=== PATIENT | female | born 1980 | race Caucasian/White ===

== ENCOUNTER 2016-11-23 17:51 | Emergency (ER) | payer MEDICAID, OTHER ==
[2016-11-23] MEDS ORDERED: Lidocaine 1% 20 ML MDV INJECT ONE (17:54)
[2016-11-23] MEDS ORDERED: Diphtheria,Pertussis(Acell),Tetanus Vaccine 0.5 ML Syringe IM ONE (18:26)
--- NOTE | 2016-11-23 18:40 | EDM.PDOC ---
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 This external grinder tender was not on at the time it struck her hand however it was heavy and she has pain to her hand underneath a small laceration. Review of systems: As per history of present illness and below otherwise all systems reviewed and negative. Past medical history: As per history of present illness and as reviewed below otherwise noncontributory. Surgical history: As per history of present illness and as reviewed below otherwise noncontributory. Social history: No reported history of drug or alcohol abuse. Family history: As per history of present illness and as reviewed below otherwise noncontributory. Physical exam: General: Well developed, well nourished in NAD HEENT: Atraumatic, normocephalic, pupils reactive, negative for conjunctival pallor or scleral icterus, mucous membranes moist, throat clear, neck supple, nontender, trachea midline. Lungs: Clear to auscultation, breath sounds equal bilaterally, chest nontender. Heart: S1S2, regular, negative for clicks, rubs, or JVD. Abdomen: Soft, nondistended, nontender. Negative for masses or hepatosplenomegaly. Negative for costovertebral tenderness. Pelvis: Stable nontender. Genitourinary: Deferred. Rectal: Deferred. Extremities: 1 cm laceration over the left dorsal first (index) metacarpal, negative for cords or calf pain. Neurovascular unremarkable. Neuro: Awake, alert, oriented. Cranial nerves II through XII unremarkable. Cerebellum unremarkable. Motor and sensory unremarkable throughout. Exam nonfocal. Diagnostics: []X-ray negative for fracture Therapeutics: []Tetanus status updated Impression: []Laceration left hand Plan: []Keflex, Motrin for pain Definitive disposition and diagnosis as appropriate pending reevaluation and review of above. 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 Neurological History: Reports: None Psychiatric History: Reports: None Endocrine/Metabolic History: Reports: None Dermatologic History: Reports: None - Infectious Disease History Infectious 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 - Past Surgical History HEENT Surgical History: Reports: None Cardiovascular Surgical History: Reports: None Respiratory Surgical History: Reports: None Female Surgical History: Reports: None Neurological Surgical History: Reports: None Musculoskeletal Surgical History: Reports: Other (See Below) Other Musculoskeletal Surgeries/Procedures:: Left hip metal plate Social & Family History - Family History Family Medical History: Noncontributory - Tobacco Use Smoking Status *Q: Current Every Day Smoker Years of Tobacco use: 15 Packs/Tins Daily: 0.5 Second Hand Smoke Exposure: No - Caffeine Use Caffeine Use: Reports: Coffee, Energy Drinks, Soda, Tea - Recreational Drug Use Recreational Drug Use: No ED ROS GENERAL - Review of Systems Review Of Systems: See Below (See history of present illness) ED EXAM, SKIN/RASH Exam: See Below (See history of present illness) ED SKIN PROCEDURES - Laceration/Wound Repair Left Hand Lac/Wound length In cm: 1 Appearance: Superficial, Subcutaneous Distal NVT: Neuro & Vascular Intact Anesthetic Type: Local Local Anesthesia - Lidocaine (Xylocaine): 1% Plain Local Anesthesia - Bupivicaine (Marcaine): 0.5% Plain Local Anesthetic Volume: 1cc Skin Prep: Chlorhexidine (Hibiciens), Saline Closed with: Sutures Suture Size: 4-0 # of Sutures: 5 Repaired with: Vicryl Drain Placement: No Sterile Dressing Applied: Nurse Tetanus Status Addressed: Yes Complications: No Course - Vital Signs Last Recorded V/S: Last Vital Signs Temp 36.6 C 11/23/16 18:18 Pulse 79 11/23/16 18:18 Resp 15 11/23/16 18:18 BP 119/73 11/23/16 18:18 Pulse Ox 97 11/23/16 18:18 - Orders/Labs/Meds Orders: Active Orders 24 hr Category Date Time Status Vaccines to be Administered [RC] PER UNIT ROUTINE Care 11/23/16 18:26 Active Hand 2V Lt [CR] Stat Exams 11/23/16 18:36 Ordered Meds: Medications Discontinued Medications Generic Name Dose Route Start Last Admin Trade Name Miguel PRN Reason Stop Dose Admin Diphtheria/Tetanus/Acell Pertussis 0.5 ml 11/23/16 18:26 11/23/16 18:32 Adacel IM 11/23/16 18:27 0.5 ml .ONCE ONE Administration Lidocaine HCl 20 ml 11/23/16 17:54 11/23/16 18:26 Xylocaine 1% INJECT 11/23/16 17:55 20 ml ONETIME ONE Administration Departure - Departure Time of Disposition: 19:06 Disposition: Home, Self-Care 01 Condition: Good Clinical Impression: Hand laceration Qualifiers: Encounter type: initial encounter Foreign body presence: without foreign body Laterality: left Qualified Code(s): S61.412A - Laceration without foreign body of left hand, initial encounter - Discharge Information Prescriptions: Cephalexin [Keflex] 500 mg PO Q6HR #20 cap Referrals: Miles Galindo MD [Primary Care Provider] - Forms: ED Department Discharge Additional Instructions: The following information is given to patients seen in the emergency department who are being discharged to home. This information is to outline your options for follow-up care. We provide all patients seen in our emergency department with a follow-up referral. The need for follow-up, as well as the timing and circumstances, are variable depending upon the specifics of your emergency department visit. If you don't have a primary care physician on staff, we will provide you with a referral. We always advise you to contact your personal physician following an emergency department visit to inform them of the circumstance of the visit and for follow-up with them and/or the need for any referrals to a consulting specialist. The emergency department will also refer you to a specialist when appropriate. This referral assures that you have the opportunity for follow-up care with a specialist. All of these measure are taken in an effort to provide you with optimal care, which includes your follow-up. Under all circumstances we always encourage you to contact your private physician who remains a resource for coordinating your care. When calling for follow-up care, please make the office aware that this follow-up is from your recent emergency room visit. If for any reason you are refused follow-up, please contact the [facility] Emergency Department at and asked to speak to the emergency department charge nurse. Taryn as directed, Jessicarin for pain, ice hand, suture removal in 7-10 days return if any symptoms change or worsen including redness swelling fevers or drainage from the wound. [facility] [address] [place] [id number] - My Orders Last 24 Hours: My Active Orders 11/23/16 18:26 Vaccines to be Administered [RC] PER UNIT ROUTINE 11/23/16 18:36 Hand 2V Lt [CR] Stat - Assessment/Plan Last 24 Hours: My Active Orders 11/23/16 18:26 Vaccines to be Administered [RC] PER UNIT ROUTINE 11/23/16 18:36 Hand 2V Lt [CR] Stat
[2016-11-24 04:35] VITALS: BP 126/74
--- NOTE | 2016-11-24 10:43 | CR ---
EXAM DATE: 11/23/16 PATIENT'S AGE: 36 Patient: EMILIO FINK Facility: [place], [place] Site . Site : [id number] Study: XRay Extremity hand [id number]/[id number] 7:01:22 PM Ordering Physician: Laurent Ruiz Final Report: INDICATION: crushing injury TECHNIQUE: AP and lateral views of the left hand are submitted. COMPARISON: None. FINDINGS: No evidence for fracture, dislocation or radiopaque foreign bodies. IMPRESSION: Negative left hand. Dictated by Miles Pro MD @ 11/23/2016 7:19:02 PM Dictated by: Miles Pro MD @ 11/23/2016 19:19:15 (Electronic Signature) Report Signed by Proxy. HAMMAD
== END 2016-11-23 19:35 | disposition home or self-care (01) ==
LOC: MW.ED 17:51
DX: S61.412A Laceration without foreign body of left hand, initial encounter (principal); Z23 Encounter for immunization; F17.210 Nicotine dependence, cigarettes, uncomplicated; W20.8XXA Other cause of strike by thrown, projected or falling object, initial encounter
CPT/HCPCS: 12001; 73120-26-LT; 73120-LT; 90471; 90715; 99283; 99283-25

== ENCOUNTER 2018-02-02 11:29 | Observation (INO) | payer SELFPAY ==
[2018-02-02] MEDS ORDERED: Ketorolac 60 MG/2 ML SDV IM ONE (11:39)
--- NOTE | 2018-02-02 11:42 | EDM.PDOC ---
ED HPI GENERAL MEDICAL PROBLEM - General Chief Complaint: Abdominal Pain Stated Complaint: ABD PAIN Time Seen by Provider: 02/02/18 11:33 Source of Information: Reports: Patient History Limitations: Reports: No Limitations - History of Present Illness INITIAL COMMENTS - FREE TEXT/NARRATIVE: HISTORY AND PHYSICAL: History of present illness: Patient is a 38-year-old female who presents to the emergency room today with complaints of left low back pain since Wednesday. She states this has been worse over the past 24 hours; is concerned it is her "kidneys". She states she is voiding without difficulty but feels like she is not completely emptying her bladder, "it seems like it is just small amounts". Mild nausea and pain to the left low back seems worse with movement. 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 She denies any previous injury, trauma or surgeries of the, hip or pelvis. No recent trauma, falls or injury. She denies any numbness or tingling to her distal extremities. She denies any fever, chills, chest pain, shortness of breath or cough. Denies any abdominal pain, vomiting, diarrhea, constipation or dysuria. Review of systems: As per history of present illness and below otherwise all systems reviewed and negative. Past medical history: As per history of present illness and as reviewed below otherwise noncontributory. Surgical history: As per history of present illness and as reviewed below otherwise noncontributory. Social history: No reported history of drug or alcohol abuse. Family history: As per history of present illness and as reviewed below otherwise noncontributory. Physical exam: General: Well-developed and well-nourished 38-year-old female. Alert and oriented. Nontoxic appearing and in no acute distress. HEENT: Atraumatic, normocephalic, pupils equal and reactive bilaterally, negative for conjunctival pallor or scleral icterus, mucous membranes moist, throat clear, neck supple, nontender, trachea midline. No drooling or trismus noted. No meningeal signs Lungs: Clear to auscultation, breath sounds equal bilaterally, chest nontender. Heart: S1S2, regular rate and rhythm without overt murmur Abdomen: Soft, nondistended, nontender. Negative for masses or hepatosplenomegaly. Negative for costovertebral tenderness. Pelvis: Stable nontender. Genitourinary: Deferred. Rectal: Deferred. Skin: Intact, warm, dry. No lesions or rashes noted. Extremities: Atraumatic, negative for cords or calf pain. Neurovascular unremarkable. Neuro: Awake, alert, oriented. Cranial nerves II through XII unremarkable. Cerebellum unremarkable. Motor and sensory unremarkable throughout. Exam nonfocal. Notes: CT shows a 4 mm obstructing stone at the left ureteropelvic junction with mild proximal hydronephrosis. Nonobstructing left renal stone. Dr. Fernandez was consult did on this case. He would like the patient to present to his office after discharge from the emergency room. He states he will take care of of her prescriptions when he evaluates her. Shared with the patient. She voices understanding and is agreeable to plan of care. Patient discharged to a referral to urology. Diagnostics: CBC, CMP, UA, urine Therapeutics: Toradol, Zofran Prescription: None Impression: Kidney Stone Pyelonephritis Plan: 1. Please go directly to Dr Deshpande's office for further evaluation and management 2. Return to the ED as needed and as discussed. Definitive disposition and diagnosis as appropriate pending reevaluation and review of above. Duration: Day(s): left flank Pain Score (Numeric/FACES): 8 - Related Data Allergies Allergy/AdvReac Type Severity Reaction Status Date / Time No Known Allergies Allergy Verified 02/02/18 11:40 Home Meds: Home Meds . 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 Neurological History: Reports: None Psychiatric History: Reports: None Endocrine/Metabolic History: Reports: None Dermatologic History: Reports: None - Infectious Disease History Infectious 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 - Past Surgical History HEENT Surgical History: Reports: None Cardiovascular Surgical History: Reports: None Respiratory Surgical History: Reports: None Female Surgical History: Reports: None Neurological Surgical History: Reports: None Musculoskeletal Surgical History: Reports: Other (See Below) Other Musculoskeletal Surgeries/Procedures:: Left hip metal plate Social & Family History - Family History Family Medical History: Noncontributory - Caffeine Use Caffeine Use: Reports: Coffee, Energy Drinks, Soda, Tea ED ROS GENERAL - Review of Systems Review Of Systems: ROS reveals no pertinent complaints other than HPI. ED EXAM, GENERAL - Physical Exam Exam: See Below (See dictation) Course - Vital Signs Last Recorded V/S: Last Vital Signs Temp 98.4 F 02/02/18 11:36 Pulse 86 02/02/18 11:36 Resp 16 02/02/18 11:36 BP 131/84 02/02/18 11:36 Pulse Ox 97 02/02/18 11:36 - Orders/Labs/Meds Orders: Active Orders 24 hr Category Date Time Status CULTURE URINE [RM] Stat Lab 02/02/18 13:28 Ordered Labs: Laboratory Tests 02/02/18 02/02/18 02/02/18 Range/Units 12:08 12:08 12:50 WBC 12.70 H (4.0-11.0) K/uL RBC 4.31 (4.30-5.90) M/uL Hgb 13.1 (12.0-16.0) g/dL Hct 40.4 (36.0-46.0) % MCV 93.7 (80.0-98.0) fL MCH 30.4 (27.0-32.0) pg MCHC 32.4 (31.0-37.0) g/dL RDW Std Deviation 44.0 (28.0-62.0) fl RDW Coeff of Adrianna 13 (11.0-15.0) % Plt Count 145 L (150-400) K/uL MPV 11.70 (7.40-12.00) fL Neut % (Auto) 82.4 H (48.0-80.0) % Lymph % (Auto) 8.9 L (16.0-40.0) % [place] % (Auto) 8.0 (0.0-15.0) % Eos % (Auto) 0.6 (0.0-7.0) % Baso % (Auto) 0.1 (0.0-1.5) % Neut # (Auto) 10.5 H (1.4-5.7) K/uL Lymph # (Auto) 1.1 (0.6-2.4) K/uL [place] # (Auto) 1.0 H (0.0-0.8) K/uL Eos # (Auto) 0.1 (0.0-0.7) K/uL Baso # (Auto) 0.0 (0.0-0.1) K/uL Sodium 142 (136-145) mmol/L Potassium 3.9 (3.5-5.1) mmol/L Chloride 108 H (98-107) mmol/L Carbon Dioxide 26.2 (21.0-32.0) mmol/L BUN 10 (7.0-18.0) mg/dL Creatinine 0.8 (0.6-1.0) mg/dL Est Cr Clr Drug Dosing 86.64 mL/min Estimated GFR (MDRD) > 60.0 ml/min Glucose 98 (74-106) mg/dL Calcium 8.8 (8.5-10.1) mg/dL Total Bilirubin 0.4 (0.2-1.0) mg/dL AST 12 L (15-37) IU/L ALT 18 (14-63) IU/L Alkaline Phosphatase 77 (46-116) U/L Total Protein 7.2 (6.4-8.2) g/dL Albumin 3.5 (3.4-5.0) g/dL Globulin 3.7 H (2.0-3.5) g/dL Albumin/Globulin Ratio 1.0 L (1.3-2.8) Urine Color YELLOW Urine Appearance SLT CLOUDY Urine pH 5.5 (5.0-8.0) Ur Specific [place] 1.020 (1.001-1.035) Urine Protein 30 (NEGATIVE) mg/dL Urine Glucose (UA) NEGATIVE (NEGATIVE) mg/dL Urine Ketones NEGATIVE (NEGATIVE) mg/dL Urine Occult Blood LARGE H (NEGATIVE) Urine Nitrite POSITIVE H (NEGATIVE) Urine Bilirubin NEGATIVE (NEGATIVE) Urine Urobilinogen 0.2 (<2.0) EU/dL Ur Leukocyte Esterase LARGE (NEGATIVE) Urine RBC 2-3 (0-2/HPF) Urine WBC TO NUMEROUS TO COUNT H (0-5/HPF) Ur Epithelial Cells OCCASIONAL (NONE-FEW) Urine Bacteria 2+ H (NEGATIVE) Urine HCG, Qual (NEGATIVE) 02/02/18 Range/Units 12:50 WBC (4.0-11.0) K/uL RBC (4.30-5.90) M/uL Hgb (12.0-16.0) g/dL Hct (36.0-46.0) % MCV (80.0-98.0) fL MCH (27.0-32.0) pg MCHC (31.0-37.0) g/dL RDW Std Deviation (28.0-62.0) fl RDW Coeff of Adrianna (11.0-15.0) % Plt Count (150-400) K/uL MPV (7.40-12.00) fL Neut % (Auto) (48.0-80.0) % Lymph % (Auto) (16.0-40.0) % [place] % (Auto) (0.0-15.0) % Eos % (Auto) (0.0-7.0) % Baso % (Auto) (0.0-1.5) % Neut # (Auto) (1.4-5.7) K/uL Lymph # (Auto) (0.6-2.4) K/uL [place] # (Auto) (0.0-0.8) K/uL Eos # (Auto) (0.0-0.7) K/uL Baso # (Auto) (0.0-0.1) K/uL Sodium (136-145) mmol/L Potassium (3.5-5.1) mmol/L Chloride (98-107) mmol/L Carbon Dioxide (21.0-32.0) mmol/L BUN (7.0-18.0) mg/dL Creatinine (0.6-1.0) mg/dL Est Cr Clr Drug Dosing mL/min Estimated GFR (MDRD) ml/min Glucose (74-106) mg/dL Calcium (8.5-10.1) mg/dL Total Bilirubin (0.2-1.0) mg/dL AST (15-37) IU/L ALT (14-63) IU/L Alkaline Phosphatase (46-116) U/L Total Protein (6.4-8.2) g/dL Albumin (3.4-5.0) g/dL Globulin (2.0-3.5) g/dL Albumin/Globulin Ratio (1.3-2.8) Urine Color Urine Appearance Urine pH (5.0-8.0) Ur Specific [place] (1.001-1.035) Urine Protein (NEGATIVE) mg/dL Urine Glucose (UA) (NEGATIVE) mg/dL Urine Ketones (NEGATIVE) mg/dL Urine Occult Blood (NEGATIVE) Urine Nitrite (NEGATIVE) Urine Bilirubin (NEGATIVE) Urine Urobilinogen (<2.0) EU/dL Ur Leukocyte Esterase (NEGATIVE) Urine RBC (0-2/HPF) Urine WBC (0-5/HPF) Ur Epithelial Cells (NONE-FEW) Urine Bacteria (NEGATIVE) Urine HCG, Qual NEGATIVE (NEGATIVE) Meds: Medications Discontinued Medications Generic Name Dose Route Start Last Admin Trade Name Freq PRN Reason Stop Dose Admin Ciprofloxacin 500 mg 02/02/18 13:25 Ciprofloxacin Hcl PO 02/02/18 13:26 ONETIME ONE Ketorolac Tromethamine 60 mg 02/02/18 11:39 02/02/18 13:09 Toradol IM 02/02/18 11:40 60 mg ONETIME ONE Administration Ondansetron HCl 4 mg 02/02/18 11:47 02/02/18 13:08 Zofran Odt PO 02/02/18 11:48 4 mg ONETIME ONE Administration Departure - Departure Time of Disposition: 14:12 Disposition: Home, Self-Care 01 Clinical Impression: Kidney stone, Pyelonephritis - Discharge Information Instructions: Pyelonephritis, Adult, Eczi-ee-Adig, Kidney Stones, [id number] Referrals: PCP,None [Primary Care Provider] - Forms: ED Department Discharge Additional Instructions: The following information is given to patients seen in the emergency department who are being discharged to home. This information is to outline your options for follow-up care. We provide all patients seen in our emergency department with a follow-up referral. The need for follow-up, as well as the timing and circumstances, are variable depending upon the specifics of your emergency department visit. If you don't have a primary care physician on staff, we will provide you with a referral. We always advise you to contact your personal physician following an emergency department visit to inform them of the circumstance of the visit and for follow-up with them and/or the need for any referrals to a consulting specialist. The emergency department will also refer you to a specialist when appropriate. This referral assures that you have the opportunity for follow-up care with a specialist. All of these measure are taken in an effort to provide you with optimal care, which includes your follow-up. Under all circumstances we always encourage you to contact your private physician who remains a resource for coordinating your care. When calling for follow-up care, please make the office aware that this follow-up is from your recent emergency room visit. If for any reason you are refused follow-up, please contact the [facility] Emergency Department at and asked to speak to the emergency department charge nurse. [facility] - Urology [address] [place] [id number] 1. Please go directly to Dr Deshpande's office for further evaluation and management 2. Return to the ED as needed and as discussed. - My Orders Last 24 Hours: My Active Orders 02/02/18 13:28 CULTURE URINE [RM] Stat - Assessment/Plan Last 24 Hours: My Active Orders 02/02/18 13:28 CULTURE URINE [RM] Stat
[2018-02-02] MEDS ORDERED: Ondansetron 4 MG Tab.DIS PO ONE (11:47)
[2018-02-02 12:38] LABS: CHLORIDE,CL 108 mmol/L (98-107); SODIUM,NA 142 mmol/L (136-145)
[2018-02-02] MEDS ORDERED: Ciprofloxacin 500 MG Tab PO ONE (13:25)
--- NOTE | 2018-02-02 14:05 | CT ---
CT of the abdomen and pelvis without contrast. HISTORY: Pain TECHNIQUE: Axial CT images were obtained of the abdomen and pelvis without contrast. Coronal and sagi ttal reconstructions obtained. FINDINGS: The lung bases are clear, no pleural effusion. The liver, spleen, adrenal glands, and pancreas appear unremarkable for noncontrast examination. The gallbladder appears normal. There is no bulky retroperitoneal lymphadenopathy. No abdominal ascites. There is a 4 mm obstructing stone at the left ureteropelvic junction with mild proximal hydronephrosi s. Small nonobstructing 2 mm left renal stone also noted. The large and small bowel are normal in caliber without evidence of obstruction. The appendix appears normal. There is no bulky pelvic lymphadenopathy. No free fluid. No free air. The urinary bladder ap pears normal. Old traumatic deformities noted of the pelvis with hardware. No suspicious osseous abnormalities. IMPRESSION: 1. There is a 4 mm obstructing stone at the left ureteropelvic junction with mild proximal hydronephr osis. 2. Nonobstructing left renal calculus.
[2018-02-02] MEDS ORDERED: Acetaminophen 500 MG Tab PO PRN (16:53)
[2018-02-02] MEDS ORDERED: HYDROmorphone 2 MG/ML SDV IVPUSH PRN (17:01)
[2018-02-02] MEDS: Lactated Ringers 1,000 ML IV SCH (17:56)
[2018-02-02] MEDS ORDERED: Ondansetron 4 MG/2 ML SDV IVPUSH PRN (18:47)
[2018-02-02] MEDS ORDERED: Ketorolac 30 MG/ML SDV IVPUSH PRN (19:16)
[2018-02-02] MEDS: Ampicillin 2 GM in Sodium Chloride 0.9% 100 ML IV SCH ×2 (19:18→23:48)
[2018-02-02] MEDS: Ketorolac 30 MG/ML SDV IVPUSH PRN (23:47)
[2018-02-03] MEDS: Lactated Ringers 1,000 ML IV SCH (02:37)
[2018-02-03] MEDS: Ampicillin 2 GM in Sodium Chloride 0.9% 100 ML IV SCH ×2 (05:23→12:28)
--- NOTE | 2018-02-03 08:42 | PCM.PREANE ---
Preanesthetic Assessment - Procedure Proposed Procedure: Left ureteral stent placement - Anesthesia/Transfusion/Family Hx Anesthesia History: Prior Anesthesia Without Reaction Family History of Anesthesia Reaction: No Transfusion History: No Prior Transfusion(s) Intubation History: Unknown - Review of Systems General: Other (pain on left abdomen) Pulmonary: Other (Q day smoker) Cardiovascular: No Symptoms Gastrointestinal: No Symptoms Neurological: No Symptoms Other: Reports: None - Physical Assessment NPO Status Date: 02/02/18 NPO Status Time: 23:30 O2 Sat by Pulse Oximetry: 96 Respiratory Rate: 16 Vital Signs: Last Vital Signs Temp 99.5 F 02/03/18 07:41 Pulse 75 02/03/18 07:41 Resp 16 02/03/18 07:41 BP 116/63 02/03/18 07:41 Pulse Ox 96 02/03/18 07:41 Height: 5 ft 5 in Weight: 197 lb 4.8 oz ASA Class: 2 Mental Status: Alert & Oriented x3 Airway Class: Mallampati = 3 Dentition: Reports: Normal Dentition Thyro-Mental Finger Breadths: 3 Mouth Opening Finger Breadths: 3 ROM/Head Extension: Full Lungs: Clear to Auscultation, Normal Respiratory Effort Cardiovascular: Regular Rate, Regular Rhythm, No Murmurs Other: 0830 dose of tobramycin running - Lab Values: Laboratory Last Values WBC 12.70 K/uL (4.0-11.0) H 02/02/18 12:08 RBC 4.31 M/uL (4.30-5.90) 02/02/18 12:08 Hgb 13.1 g/dL (12.0-16.0) 02/02/18 12:08 Hct 40.4 % (36.0-46.0) 02/02/18 12:08 MCV 93.7 fL (80.0-98.0) 02/02/18 12:08 MCH 30.4 pg (27.0-32.0) 02/02/18 12:08 MCHC 32.4 g/dL (31.0-37.0) 02/02/18 12:08 RDW Std Deviation 44.0 fl (28.0-62.0) 02/02/18 12:08 RDW Coeff of Adrianna 13 % (11.0-15.0) 02/02/18 12:08 Plt Count 145 K/uL (150-400) L 02/02/18 12:08 MPV 11.70 fL (7.40-12.00) 02/02/18 12:08 Neut % (Auto) 82.4 % (48.0-80.0) H 02/02/18 12:08 Lymph % (Auto) 8.9 % (16.0-40.0) L 02/02/18 12:08 Cherry % (Auto) 8.0 % (0.0-15.0) 02/02/18 12:08 Eos % (Auto) 0.6 % (0.0-7.0) 02/02/18 12:08 Baso % (Auto) 0.1 % (0.0-1.5) 02/02/18 12:08 Neut # (Auto) 10.5 K/uL (1.4-5.7) H 02/02/18 12:08 Lymph # (Auto) 1.1 K/uL (0.6-2.4) 02/02/18 12:08 Cherry # (Auto) 1.0 K/uL (0.0-0.8) H 02/02/18 12:08 Eos # (Auto) 0.1 K/uL (0.0-0.7) 02/02/18 12:08 Baso # (Auto) 0.0 K/uL (0.0-0.1) 02/02/18 12:08 Sodium 142 mmol/L (136-145) 02/02/18 12:08 Potassium 3.9 mmol/L (3.5-5.1) 02/02/18 12:08 Chloride 108 mmol/L (98-107) H 02/02/18 12:08 Carbon Dioxide 26.2 mmol/L (21.0-32.0) 02/02/18 12:08 BUN 10 mg/dL (7.0-18.0) 02/02/18 12:08 Creatinine 0.8 mg/dL (0.6-1.0) 02/02/18 12:08 Est Cr Clr Drug Dosing 86.64 mL/min 02/02/18 12:08 Estimated GFR (MDRD) > 60.0 ml/min 02/02/18 12:08 Glucose 98 mg/dL (74-106) 02/02/18 12:08 Calcium 8.8 mg/dL (8.5-10.1) 02/02/18 12:08 Total Bilirubin 0.4 mg/dL (0.2-1.0) 02/02/18 12:08 AST 12 IU/L (15-37) L 02/02/18 12:08 ALT 18 IU/L (14-63) 02/02/18 12:08 Alkaline Phosphatase 77 U/L (46-116) 02/02/18 12:08 Total Protein 7.2 g/dL (6.4-8.2) 02/02/18 12:08 Albumin 3.5 g/dL (3.4-5.0) 02/02/18 12:08 Globulin 3.7 g/dL (2.0-3.5) H 02/02/18 12:08 Albumin/Globulin Ratio 1.0 (1.3-2.8) L 02/02/18 12:08 Urine Color YELLOW 02/02/18 12:50 Urine Appearance SLT CLOUDY 02/02/18 12:50 Urine pH 5.5 (5.0-8.0) 02/02/18 12:50 Ur Specific [place] 1.020 (1.001-1.035) 02/02/18 12:50 Urine Protein 30 mg/dL (NEGATIVE) 02/02/18 12:50 Urine Glucose (UA) NEGATIVE mg/dL (NEGATIVE) 02/02/18 12:50 Urine Ketones NEGATIVE mg/dL (NEGATIVE) 02/02/18 12:50 Urine Occult Blood LARGE (NEGATIVE) H 02/02/18 12:50 Urine Nitrite POSITIVE (NEGATIVE) H 02/02/18 12:50 Urine Bilirubin NEGATIVE (NEGATIVE) 02/02/18 12:50 Urine Urobilinogen 0.2 EU/dL (<2.0) 02/02/18 12:50 Ur Leukocyte Esterase LARGE (NEGATIVE) 02/02/18 12:50 Urine RBC 2-3 (0-2/HPF) 02/02/18 12:50 Urine WBC TO NUMEROUS TO COUNT (0-5/HPF) H 02/02/18 12:50 Ur Epithelial Cells OCCASIONAL (NONE-FEW) 02/02/18 12:50 Urine Bacteria 2+ (NEGATIVE) H 02/02/18 12:50 Urine HCG, Qual NEGATIVE (NEGATIVE) 02/02/18 12:50 - Allergies Allergies/Adverse Reactions: Allergies Allergy/AdvReac Type Severity Reaction Status Date / Time No Known Allergies Allergy Verified 02/02/18 17:44 - Blood Blood Available: No Product(s) Available: None - Anesthesia Plan Pre-Op Medication Ordered: None - Acknowledgements Anesthesia Type Planned: General Anesthesia (LMA vs OET) Pt an Appropriate Candidate for the Planned Anesthesia: Yes Alternatives and Risks of Anesthesia Discussed w Pt/Guardian: Yes Pt/Guardian Understands and Agrees with Anesthesia Plan: Yes PreAnesthesia Questionnaire - Past Health History Medical/Surgical History: Denies Medical/Surgical History HEENT History: Reports: None Cardiovascular History: Reports: None Respiratory History: Reports: None Gastrointestinal History: Reports: None Genitourinary History: Reports: None 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 Neurological History: Reports: None Psychiatric History: Reports: None Endocrine/Metabolic History: Reports: None Dermatologic History: Reports: None - Infectious Disease History Infectious 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 - Past Surgical History HEENT Surgical History: Reports: None Cardiovascular Surgical History: Reports: None Respiratory Surgical History: Reports: None Female Surgical History: Reports: None Neurological Surgical History: Reports: None Musculoskeletal Surgical History: Reports: Other (See Below) Other Musculoskeletal Surgeries/Procedures:: Left hip metal plate - SUBSTANCE USE Smoking Status *Q: Current Every Day Smoker Tobacco Use Within Last Twelve Months: Cigarettes Recreational Drug Use History: No - HOME MEDS Home Medications: Home Meds Patient's Own Medication [Ptom] 1 tab PO DAILY 02/02/18 [History] - CURRENT (IN HOUSE) MEDS Current Meds: Current Medications Acetaminophen (Tylenol Extra Strength) 1,000 mg PO Q4H PRN PRN Reason: Fever Ampicillin Sodium 2 gm/ Sodium (Chloride) 100 mls @ 200 mls/hr IV Q6H [facility] Last Admin: 02/03/18 05:23 Dose: 200 mls/hr Lactated Ringer's (Ringers, Lactated) 1,000 mls @ 150 mls/hr IV ASDIRECTED [facility] Last Admin: 02/03/18 02:37 Dose: 150 mls/hr Tobramycin 120 mg/ Sodium (Chloride) 103 mls @ 206 mls/hr IV Q8H [facility] Last Admin: 02/03/18 08:17 Dose: 206 mls/hr Ketorolac Tromethamine (Toradol) 20 mg IVPUSH Q6H PRN PRN Reason: Pain Stop: 02/07/18 19:47 Last Admin: 02/02/18 23:47 Dose: 20 mg Ondansetron HCl (Zofran) 4 mg IVPUSH Q3H PRN PRN Reason: Nausea Discontinued Medications Ciprofloxacin (Ciprofloxacin Hcl) 500 mg PO ONETIME ONE Stop: 02/02/18 13:26 Last Admin: 02/02/18 14:24 Dose: Not Given Hydromorphone HCl (Dilaudid) 2 mg IVPUSH Q3H PRN PRN Reason: Pain (moderate 4-6) Last Admin: 02/02/18 18:03 Dose: 2 mg Ketorolac Tromethamine (Toradol) 60 mg IM ONETIME ONE Stop: 02/02/18 11:40 Last Admin: 02/02/18 13:09 Dose: 60 mg Ketorolac Tromethamine (Toradol) 50 mg IVPUSH Q6H PRN PRN Reason: Pain Stop: 02/07/18 19:17 Ondansetron HCl (Zofran Odt) 4 mg PO ONETIME ONE Stop: 02/02/18 11:48 Last Admin: 02/02/18 13:08 Dose: 4 mg
[2018-02-03] MEDS ORDERED: Midazolam 1 MG/ML 2 ML SDV ONE (09:05)
[2018-02-03] MEDS ORDERED: Ondansetron 4 MG/2 ML SDV ONE (09:05)
[2018-02-03] MEDS ORDERED: Propofol 200 MG/20 ML SDV ONE (09:08)
[2018-02-03] MEDS ORDERED: Rocuronium 10 MG/ML 10 ML Syringe ONE (09:09)
[2018-02-03] MEDS ORDERED: Succinylcholine 200 MG/10 ML MDV ONE (09:10)
[2018-02-03] MEDS: Ketorolac 30 MG/ML SDV IVPUSH PRN (09:12)
[2018-02-03] MEDS ORDERED: Iopamidol 408 MG/ML 50 ML SDV ONE (09:38)
[2018-02-03] MEDS ORDERED: fentaNYL 100 MCG/2 ML SDV ONE (10:23)
[2018-02-03] MEDS ORDERED: Dexamethasone 4 MG/ML 5 ML MDV ONE (10:33)
[2018-02-03] MEDS: fentaNYL 100 MCG/2 ML SDV IVPUSH PRN ×2 (10:56→11:05)
--- NOTE | 2018-02-03 11:05 | PCM.POSTAN ---
POST ANESTHESIA ASSESSMENT - MENTAL STATUS Mental Status: Alert, Oriented - RESPIRATORY Respiratory Status: Respiratory Rate WNL, Airway Patent, O2 Saturation Stable - CARDIOVASCULAR CV Status: Pulse Rate WNL, Blood Pressure Stable - GASTROINTESTINAL GI Status: No Symptoms - POST OP HYDRATION Hydration Status: Adequate & Stable
--- NOTE | 2018-02-03 11:24 | OR ---
SURGEON: Joseph Deshpande M.D. DATE OF PROCEDURE: 02/03/2018 PREOPERATIVE DIAGNOSES: 1. Left upper ureteral stone. 2. Urinary tract infection. POSTOPERATIVE DIAGNOSES: 1. Left upper ureteral stone. 2. Urinary tract infection. OPERATIONS: 1. Cystoscopy. 2. Double-J stent placement. DESCRIPTION OF THE PROCEDURE: The patient was given general anesthesia. She was placed in dorsal lithotomy position, prepped and draped in sterile drapes. Cystourethroscopy was done, that was normal. A guidewire was advanced alongside the stone all the way up into the renal pelvis over which a 6-Belarusian 28 cm double-J stent was placed. Position of the stent was confirmed on fluoroscopy. The bladder was emptied and the patient was moved to recovery room in good condition. PLAN: I will see her next week to arrange for the next step, which would probably be an ESWL. RUTH / DOROTEHA /[id number]
--- NOTE | 2018-02-03 14:53 | PCM48HPAN ---
Post Anesthesia Note - EVALUATION WITHIN 48HRS OF ANESTHETIC Vital Signs in Normal Range: Yes Patient Participated in Evaluation: Yes Respiratory Function Stable: Yes Airway Patent: Yes Cardiovascular Function Stable: Yes Hydration Status Stable: Yes Pain Control Satisfactory: Yes Nausea and Vomiting Control Satisfactory: Yes Mental Status Recovered: Yes Resp Rate: 16
[2018-02-03 15:06] VITALS: BP 125/76
--- NOTE | 2018-02-03 16:35 | CR ---
EXAMINATION: Cystoscopy HISTORY: Stent placement COMPARISON: 02/02/2018 TECHNIQUE: 2 views FINDINGS/IMPRESSION: Operative control films demonstrate selection of the left ureter with subsequent stent placement.
== END 2018-02-03 17:00 | disposition home or self-care (01) ==
LOC: MW.ED 11:29 → MW.MS 16:41
PROVIDERS: ADMIT Urology; ATTEND Urology
DX: N13.2 Hydronephrosis with renal and ureteral calculous obstruction (principal); N39.0 Urinary tract infection, site not specified; F17.210 Nicotine dependence, cigarettes, uncomplicated
CPT/HCPCS: 36415; 52332; 74176; 76000; 80053; 81001; 81025; 85025; 87040; 87086; 87088; 87186; 96372; 99284; A9270; C1769; C1874; J0290; J0330; J1100; J1170; J1885; J2250; J2405; J2704; J3010; J3260; J7030; J7120; Q9966

== ENCOUNTER 2019-06-20 19:18 | Emergency (ER) | payer BC, OTHER ==
--- NOTE | 2019-06-20 22:48 | EDM.PDOC ---
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 She states that she has not had any OB follow-up as of yet because of insurance reasons. She just saw our nurse practitioner once and does have some follow-up coming up. She states that for the past several days she has had some migrating lower abdominal cramping and discomfort but no severe pain. No back pain, no vaginal bleeding, no dysuria or urinary frequency. 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 Musculoskeletal History: Reports: Fracture Other Musculoskeletal History: left hip Neurological History: Reports: Concussion Psychiatric History: Reports: None Endocrine/Metabolic History: Reports: Obesity/BMI 30+ Dermatologic History: Reports: None - Infectious Disease History Infectious 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 - Past Surgical History Head Surgeries/Procedures: Reports: None Female Surgical History: Reports: D&C, Lithotripsy/ESWL, Ureteral Stent Musculoskeletal Surgical History: Reports: ORIF Other Musculoskeletal Surgeries/Procedures:: ORIF left hip- has plates and screws Social & Family History - Family History Family Medical History: Noncontributory - Tobacco Use Smoking Status *Q: Current Every Day Smoker Years of Tobacco use: 20 Packs/Tins Daily: 0.5 - Caffeine Use Caffeine Use: Reports: Coffee, Tea - Recreational Drug Use Recreational Drug Use: No ED ROS GENERAL - Review of Systems Review Of Systems: See Below (Positive for lower abdominal discomfort, negative for fevers, negative for vaginal bleeding, negative for dysuria, negative for back pain, all other Positives and pertinent negatives as per HPI. All other pertinent systems were reviewed and are negative) ED EXAM, GI/ABD - Physical Exam Exam: See Below Text/Narrative:: Constitutional: No acute distress, Non-toxic appearance. HEENT: Normocephalic, Atraumatic, EOMI Neck: Normal range of motion, No stridor, trachea midline Respiratory: No respiratory distress, No tachypnea Cardiovascular: Deferred Gastrointestinal: Obese, abdomen is soft and nondistended, there is mild lower abdominal discomfort but no rebound, rigidity or guarding, no upper abdominal tenderness Genital / Urinary: Deferred Musculoskeletal: All four extremities present and atraumatic Back: FROM Integument: Warm, Dry, Color is ethnicity appropriate, No rash. Neuro: Alert, Awake, No focal deficits noted Psych: Affect, Judgement, mood normal Course - Vital Signs Text/Narrative:: Differential diagnosis is broad and can include a cystitis, pelvic discomfort secondary to an expanding uterus, diverticulitis, early appendicitis, although would be unusual a patient can have an ectopic at 16 weeks, others The patient's urinalysis is unremarkable. I performed a transabdominal bedside ultrasound and the patient has a definite advanced intrauterine with a very active fetus with a normal heart rate. I do not see any free fluid. I spoke with the patient and her spouse in detail that at this time, although I cannot definitively rule out other malignant pathology such as an early appendicitis, or diverticulitis, given the entire history and physical exam I do not personally think it is worth it to perform a CT scan of the abdomen and pelvis, or lab work at this time. They are comfortable with my thought process , and she will return to the ER if she gets progressively worsening pain, fevers and abdominal pain, or any other urinary changes. Otherwise the patient is stable for discharge and close outpatient follow-up. Last Recorded V/S: Last Vital Signs Temp 36.7 C 06/20/19 19:33 Pulse 99 06/20/19 19:33 Resp 18 06/20/19 19:33 BP 121/66 06/20/19 19:33 Pulse Ox 97 06/20/19 19:33 - Orders/Labs/Meds Orders: Active Orders 24 hr Category Date Time Status CULTURE URINE [RM] Stat Lab 06/20/19 21:30 Received Labs: Laboratory Tests 06/20/19 Range/Units 21:30 Urine Color YELLOW Urine Appearance SLT CLOUDY Urine pH 5.5 (5.0-8.0) Ur Specific [place] >= 1.030 (1.001-1.035) Urine Protein NEGATIVE (NEGATIVE) mg/dL Urine Glucose (UA) NEGATIVE (NEGATIVE) mg/dL Urine Ketones NEGATIVE (NEGATIVE) mg/dL Urine Occult Blood SMALL H (NEGATIVE) Urine Nitrite NEGATIVE (NEGATIVE) Urine Bilirubin NEGATIVE (NEGATIVE) Urine Urobilinogen 0.2 (<2.0) EU/dL Ur Leukocyte Esterase TRACE H (NEGATIVE) Urine RBC 1-2 (0-2/HPF) Urine WBC 1-2 (0-5/HPF) Ur Epithelial Cells RARE (NONE-FEW) Urine Bacteria RARE (NEGATIVE) Departure - Departure Time of Disposition: 22:48 Disposition: Home, Self-Care 01 Condition: Good Clinical Impression: Abdominal pain, Intrauterine - Discharge Information Instructions: Abdominal Pain, Adult, [id number] Referrals: Miles Galindo MD [Primary Care Provider] - Sepsis Event Note - Evaluation Sepsis Screening Result: No Definite Risk - Focused Exam Vital Signs: Vital Signs Temp Pulse Resp BP Pulse Ox 06/20/19 19:33 36.7 C 99 18 121/66 97 Date Exam was Performed: 06/20/19 Time Exam was Performed: 22:43
[2019-06-20 23:02] VITALS: BP 103/62; PULSE 84
== END 2019-06-20 22:55 | disposition home or self-care (01) ==
LOC: MW.ED 19:18
DX: O99.89 Other specified diseases and conditions complicating pregnancy, childbirth and the puerperium (principal); R10.30 Lower abdominal pain, unspecified; O99.212 Obesity complicating pregnancy, second trimester; E66.9 Obesity, unspecified; O99.332 Smoking (tobacco) complicating pregnancy, second trimester; F17.210 Nicotine dependence, cigarettes, uncomplicated; Z3A.16 16 weeks gestation of pregnancy
CPT/HCPCS: 81001; 87086; 87088; 87186; 99284

== ENCOUNTER 2019-11-27 05:23 | Inpatient (IN) | payer MEDICAID ==
[2019-11-27] MEDS ORDERED: Sodium Chloride 0.9% 2.5 ML Syringe FLUSH PRN (05:35)
[2019-11-27] MEDS ORDERED: Citric Acid/Sodium Citrate Solution 30 ML Cup PO ONE (05:35)
[2019-11-27] MEDS ORDERED: ceFAZolin 2 GM in Premix Bag 1 BAG IV ONE (05:35)
[2019-11-27] MEDS ORDERED: Sodium Chloride 0.9% 10 ML SDV IV PRN (05:35)
[2019-11-27] MEDS ORDERED: Sodium Chloride 0.9% 10 ML Syringe FLUSH PRN (05:35)
[2019-11-27] MEDS ORDERED: Oxytocin/0.9 % Sodium Chloride 30 UNIT/500 ML BAG IV SCH (05:45)
[2019-11-27] MEDS: Lactated Ringers 1,000 ML IV SCH ×4 (06:45→16:21)
[2019-11-27] MEDS ORDERED: Phenylephrine 1% 10 MG/ML SDV ONE (07:09)
[2019-11-27] MEDS ORDERED: Morphine PF 10 MG/10 ML SDV ONE (07:10)
[2019-11-27] MEDS ORDERED: Nalbuphine 10 MG/1 ML Vial IVPUSH PRN (07:37)
[2019-11-27] MEDS ORDERED: Acetaminophen/oxyCODONE 325-5 MG Tab PO PRN ×2 (07:37→09:29)
[2019-11-27] MEDS ORDERED: fentaNYL 100 MCG/2 ML SDV IVPUSH PRN (07:37)
--- NOTE | 2019-11-27 07:37 | PCM.PREANE ---
Preanesthetic Assessment - Anesthesia/Transfusion/Family Hx Anesthesia History: Prior Anesthesia Without Reaction Family History of Anesthesia Reaction: No Transfusion History: No Prior Transfusion(s) Intubation History: Unknown - Review of Systems General: No Symptoms Pulmonary: No Symptoms Cardiovascular: No Symptoms Gastrointestinal: No Symptoms Neurological: No Symptoms - Physical Assessment Height: 5 ft 5 in Weight: 118.841 kg ASA Class: 2 Mental Status: Alert & Oriented x3 Airway Class: Mallampati = 3 Dentition: Reports: Normal Dentition ROM/Head Extension: Full Lungs: Clear to Auscultation, Normal Respiratory Effort Cardiovascular: Regular Rate, Regular Rhythm - Lab Values: Laboratory Last Values WBC 12.45 K/uL (4.0-11.0) H 11/27/19 05:55 RBC 4.17 M/uL (4.30-5.90) L 11/27/19 05:55 Hgb 11.7 g/dL (12.0-16.0) L 11/27/19 05:55 Hct 36.5 % (36.0-46.0) 11/27/19 05:55 MCV 87.5 fL (80.0-98.0) 11/27/19 05:55 MCH 28.1 pg (27.0-32.0) 11/27/19 05:55 MCHC 32.1 g/dL (31.0-37.0) 11/27/19 05:55 RDW Std Deviation 50.5 fl (28.0-62.0) 11/27/19 05:55 RDW Coeff of Adrianna 16 % (11.0-15.0) H 11/27/19 05:55 Plt Count 169 K/uL (150-400) 11/27/19 05:55 MPV 11.70 fL (7.40-12.00) 11/27/19 05:55 Nucleated RBC % 0.0 /100WBC 11/27/19 05:55 Nucleated RBCs # 0 K/uL 11/27/19 05:55 Blood Type B POSITIVE 11/27/19 05:55 Antibody Screen NEGATIVE 11/27/19 05:55 - Allergies Allergies/Adverse Reactions: Allergies Allergy/AdvReac Type Severity Reaction Status Date / Time No Known Allergies Allergy Verified 11/21/19 09:34 - Blood Blood Available: Yes - Anesthesia Plan Pre-Op Medication Ordered: None - Acknowledgements Anesthesia Type Planned: Spinal Pt an Appropriate Candidate for the Planned Anesthesia: Yes Alternatives and Risks of Anesthesia Discussed w Pt/Guardian: Yes Pt/Guardian Understands and Agrees with Anesthesia Plan: Yes Additional Comments: PMH: , one prior c section MO PLAN: spinal with duramorph PreAnesthesia Questionnaire - Past Health History Medical/Surgical History: Denies Medical/Surgical History HEENT History: Reports: None Other HEENT History: wears glasses/contacts Cardiovascular History: Reports: None Respiratory History: Reports: None Gastrointestinal History: Reports: None Other Gastrointestinal History: heartburn during Genitourinary History: Reports: Renal Calculus 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 Musculoskeletal History: Reports: Fracture Other Musculoskeletal History: left hip Neurological History: Reports: Concussion Psychiatric History: Reports: None Endocrine/Metabolic History: Reports: Obesity/BMI 30+ Hematologic History: Reports: None Immunologic History: Reports: None Oncologic (Cancer) History: Reports: None Dermatologic History: Reports: None - Infectious Disease History Infectious 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, Human Papilloma Virus (HPV) - Past Surgical History Cardiovascular Surgical History: Reports: None Respiratory Surgical History: Reports: None Female Surgical History: Reports: D&C, Lithotripsy/ESWL, Ureteral Stent Endocrine Surgical History: Reports: None Musculoskeletal Surgical History: Reports: ORIF Other Musculoskeletal Surgeries/Procedures:: ORIF left hip- has plates and screws Oncologic Surgical History: Reports: None Dermatological Surgical History: Reports: None - SUBSTANCE USE Smoking Status *Q: Current Every Day Smoker Tobacco Use Within Last Twelve Months: Cigarettes Second Hand Smoke Exposure: No Recreational Drug Use History: No - HOME MEDS Home Medications: Home Meds Vits #93/Iron Fum/FA [ Formula Tablet] 1 each PO DAILY 06/20/19 [History] Ascorbic Acid [Vitamin C] 1 tab PO DAILY 11/21/19 [History] Calcium Carb/Magnesium Hydrox [Rolaids Chewable Tablet] 1 tab.chew CHEW ASDIRECTED PRN 11/21/19 [History] Ferrous Sulfate [Iron] 1 tab PO DAILY 11/21/19 [History] - CURRENT (IN HOUSE) MEDS Current Meds: Current Medications Oxytocin/Sodium Chloride (Oxytocin 30 Unit/500 Ml-Ns) 30 unit in 500 mls @ 250 mls/hr IV TITRATE TRACEY Lactated Ringer's (Ringers, Lactated) 1,000 mls @ 500 mls/hr IV BOLUS TRACEY Last Admin: 11/27/19 07:25 Dose: 999 mls/hr Documented by: Sodium Chloride (Saline Flush) 10 ml FLUSH ASDIRECTED PRN PRN Reason: Keep Vein Open Sodium Chloride (Saline Flush) 2.5 ml FLUSH ASDIRECTED PRN PRN Reason: Keep Vein Open Sodium Chloride (Normal Saline) 10 ml IV ASDIRECTED PRN PRN Reason: IV Use Discontinued Medications Citric Acid/Sodium Citrate (Bicitra Solution) 30 ml PO ONETIME ONE Stop: 11/27/19 05:36 Cefazolin Sodium/Dextrose 2 gm (/ Premix) 50 mls @ 100 mls/hr IV ONETIME ONE Stop: 11/27/19 06:04 Morphine Sulfate (Duramorph Pf) Confirm Administered Dose 10 mg .ROUTE .STK-MED ONE Stop: 11/27/19 07:11 Phenylephrine HCl (Luis Manuel-Synephrine) Confirm Administered Dose 10 mg .ROUTE .STK- MED ONE Stop: 11/27/19 07:10
[2019-11-27] MEDS ORDERED: Oxytocin 10 Units/1 ML SDV ONE (08:01)
[2019-11-27] MEDS ORDERED: Ondansetron 4 MG/2 ML SDV ONE (08:26)
[2019-11-27] MEDS ORDERED: Misoprostol 200 MCG Tab RECTAL PRN (09:29)
[2019-11-27] MEDS ORDERED: Bisacodyl 10 MG Supp RECTAL PRN (09:29)
[2019-11-27] MEDS ORDERED: Tranexamic Acid 1,000 MG in Sodium Chloride 0.9% 100 ML IV PRN (09:29)
[2019-11-27] MEDS ORDERED: Oxytocin 10 Units/1 ML SDV IM PRN (09:29)
[2019-11-27] MEDS ORDERED: Lanolin 100% Cream 7 GM Tube TOP PRN (09:29)
[2019-11-27] MEDS ORDERED: Ondansetron 4 MG/2 ML SDV IVPUSH PRN (09:29)
[2019-11-27] MEDS ORDERED: Methylergonovine 0.2 MG/1 ML Amp IM PRN (09:29)
[2019-11-27] MEDS ORDERED: diphenhydrAMINE 50 MG/ML SDV IVPUSH PRN (09:29)
[2019-11-27] MEDS ORDERED: Oxytocin/Lactated Ringers 30 UNIT/500 ML BAG IV SCH (09:30)
--- NOTE | 2019-11-27 09:35 | PCM.OPNOTE ---
- General Post-Op/Procedure Note Date of Surgery/Procedure: 11/27/19 Operative Procedure(s): Repeat Lower transverse Findings: Live Male delivered at 819 am, 9/9 weight 2990g Pre Op Diagnosis: 39yo @ 39w0d for repeat Post-Op Diagnosis: same Anesthesia Technique: Spinal Primary Surgeon: Hayley Orantes Anesthesia Provider: Isiah White Split Fluid Replacement, Intraop: 1,300 Output, Urine Amount: 100 EBL in mLs: 900 Complications: None Condition: Good
[2019-11-27] MEDS: Ketorolac 30 MG/ML SDV IVPUSH SCH ×3 (09:55→23:00)
--- NOTE | 2019-11-27 10:03 | PCM.POSTAN ---
POST ANESTHESIA ASSESSMENT - MENTAL STATUS Mental Status: Alert, Oriented - VITAL SIGNS Vital Signs: Last Vital Signs Temp 97.2 F 11/27/19 09:19 Pulse 68 11/27/19 09:47 Resp 14 11/27/19 09:47 BP 128/84 11/27/19 09:47 Pulse Ox 95 11/27/19 09:47 - RESPIRATORY Respiratory Status: Respiratory Rate WNL, Airway Patent, O2 Saturation Stable - CARDIOVASCULAR CV Status: Pulse Rate WNL, Blood Pressure Stable - GASTROINTESTINAL GI Status: No Symptoms - POST OP HYDRATION Hydration Status: Adequate & Stable
--- NOTE | 2019-11-27 13:53 | OR ---
SURGEON: JEISON FERNANDEZ DATE OF PROCEDURE: 11/27/2019 PREOPERATIVE DIAGNOSIS: A 39-year-old G6, P3-0-2-3, at 39 weeks 0 days for repeat section. POSTOPERATIVE DIAGNOSIS: A 39-year-old G6, P3-0-2-3, at 39 weeks 0 days for repeat section. PROCEDURE: Repeat lower transverse section. ANESTHESIA: Spinal. ESTIMATED BLOOD LOSS: 900. IV FLUIDS: 1300. URINE OUTPUT: 100. NOTES AND FINDINGS: A live male delivered at 8:19am. score of 9 and 9. Weight is 2990 g. BRIEF HISTORY ABOUT THE PATIENT: She is a 39-year-old, G6, P3-0-2-3, at 39 weeks 0 days. Previous x2. C- section x1 with desired repeat . She declined a . The patient was explained the risks, benefits, and alternatives of the procedure, and she decided to proceed. DESCRIPTION OF PROCEDURE: The patient was taken to the operating room where spinal anesthesia was performed without difficulty. She was prepared and draped in the dorsal supine position with a leftward tilt. A Pfannenstiel skin incision was made in the line of the previous incision and carried down to the fascia with the Bovie. The fascia was incised and extended laterally. The abdomen was then entered via direct entry. The lower uterine segment was visualized. The Sharath retractor was placed to expose the lower uterine segment. The bladder flap was created. A lower uterine incision was made. The fetus was in cephalic position and the incision was extended manually and the head was brought to the level of the incision. With fundal pressure, the baby was delivered. Delayed cord clamping was observed. The baby was suctioned and cleaned. The baby was then handed over to the awaiting nursery nurse. The placenta was then delivered via manual massage of the uterine fundus. IV Pitocin was started. Methergine was also given. The uterus was repaired in two layers, first layer was repaired with 0 Vicryl, second layer was repaired with 0 Monocryl. Then, the Sharath retractor was removed. The incision was inspected, noted to be hemostatic. The gutters were cleaned. The adnexa were inspected and noted to be normal. The peritoneum was then closed with 2-0 Vicryl and the fascia was closed with 0 Vicryl. The subcutaneous fat was closed with 2-0 plain gut. The skin was closed with 3-0 Monocryl on a Quique needle. All instrument and pad counts were correct x2. The patient tolerated the procedure well and was taken to the Labor and Delivery room in stable condition. LUIS PIEDRA /[id number] MTDSee
[2019-11-27] MEDS: Docusate Sodium 100 MG Cap PO SCH (21:49)
[2019-11-28] MEDS: Ketorolac 30 MG/ML SDV IVPUSH SCH ×2 (06:42→12:51)
--- NOTE | 2019-11-28 08:54 | PCM48HPAN ---
Post Anesthesia Note - EVALUATION WITHIN 48HRS OF ANESTHETIC Vital Signs in Normal Range: Yes Patient Participated in Evaluation: Yes Respiratory Function Stable: Yes Airway Patent: Yes Cardiovascular Function Stable: Yes Hydration Status Stable: Yes Pain Control Satisfactory: Yes Nausea and Vomiting Control Satisfactory: Yes Mental Status Recovered: Yes Vital Signs: Last Vital Signs Temp 98.8 F 11/28/19 05:00 Pulse 100 11/28/19 07:00 Resp 18 11/28/19 07:00 BP 123/60 11/28/19 05:00 Pulse Ox 96 11/28/19 07:00 - COMMENTS/OBSERVATIONS Free Text/Narrative:: Patient reported having nausea yesterday but that has since resolved. The patient reported feeling better this morning, but sleepy. The patient had been up out of bed without issue. Denies any numbness or tingling. The patient reported feeling sore this monring but the tramadol was working for pain control.
[2019-11-28] MEDS: Acetaminophen/oxyCODONE 325-5 MG Tab PO PRN ×2 (12:49→20:56)
--- NOTE | 2019-11-28 19:18 | PCM.PNPP ---
- General Info Date of Service: 11/28/19 Subjective Update: Patient had some vomiting postop yesterday after but is tolerating now Has good pain control Normal lochia Breast and bottle feeding Functional Status: Reports: Pain Controlled, Tolerating Diet, Ambulating, Urinating - Review of Systems General: Reports: No Symptoms HEENT: Reports: No Symptoms Pulmonary: Reports: No Symptoms Cardiovascular: Reports: No Symptoms Gastrointestinal: Reports: No Symptoms Genitourinary: Reports: No Symptoms Musculoskeletal: Reports: No Symptoms Skin: Reports: No Symptoms Neurological: Reports: No Symptoms Psychiatric: Reports: No Symptoms - General Info Date of Service: 11/28/19 - Patient Data Vital Signs - Most Recent: Last Vital Signs Temp 37.2 C 11/28/19 15:44 Pulse 83 11/28/19 15:44 Resp 16 11/28/19 15:44 BP 129/79 11/28/19 15:44 Pulse Ox 95 11/28/19 15:44 Weight - Most Recent: 118.841 kg I&O - Last 24 Hours: Intake & Output 11/28/19 11/28/19 11/28/19 06:59 14:59 22:59 Intake Total 1000 Output Total 600 Balance 400 Lab Results - Last 24 Hours: Laboratory Results - last 24 hr 11/28/19 Range/Units 06:12 Hgb 10.5 L (12.0-16.0) g/dL Hct 32.8 L (36.0-46.0) % Med Orders - Current: Current Medications Bisacodyl (Dulcolax) 10 mg RECTAL ONETIME PRN PRN Reason: Constipation Diphenhydramine HCl (Benadryl) 25 mg IVPUSH Q6H PRN PRN Reason: Itching or Nausea Docusate Sodium (Colace) 100 mg PO BID [facility] Last Admin: 11/27/19 21:49 Dose: 100 mg Documented by: Emollient Ointment (Lansinoh Hpa) 0 gm TOP ASDIRECTED PRN PRN Reason: Sore Nipples Oxytocin/Sodium Chloride (Oxytocin 30 Unit/500 Ml-Ns) 30 unit in 500 mls @ 250 mls/hr IV TITRATE TRACEY Lactated Ringer's (Ringers, Lactated) 1,000 mls @ 500 mls/hr IV BOLUS [facility] Last Admin: 11/27/19 07:25 Dose: 999 mls/hr Documented by: Lactated Ringer's (Ringers, Lactated) 1,000 mls @ 125 mls/hr IV ASDIRECTED TRACEY Last Admin: 11/27/19 16:21 Dose: 125 mls/hr Documented by: Oxytocin/Lactated Ringer's (Pitocin In Lr 30 Units/500 Ml) 30 unit in 500 mls @ 125 mls/hr IV TITRATE TRACEY; Protocol Tranexamic Acid 1,000 mg/ (Sodium Chloride) 110 mls @ 660 mls/hr IV ONETIME PRN PRN Reason: Bleeding Ibuprofen (Motrin) 800 mg PO Q8H PRN PRN Reason: mild pain or fever Methylergonovine Maleate (Methergine) 0.2 mg IM ONETIME PRN PRN Reason: Excessive Vaginal Bleeding Misoprostol (Cytotec) 1,000 mcg RECTAL ONETIME PRN PRN Reason: excessive bleeding Ondansetron HCl (Zofran) 4 mg IVPUSH Q4H PRN PRN Reason: Nausea/Vomiting Last Admin: 11/27/19 13:31 Dose: 4 mg Documented by: Oxycodone/Acetaminophen (Percocet 325-5 Mg) 1 tab PO ONETIME PRN PRN Reason: Pain (moderate 4-6) Oxycodone/Acetaminophen (Percocet 325-5 Mg) 1 tab PO Q4H PRN PRN Reason: Pain (moderate 4-6) Oxycodone/Acetaminophen (Percocet 325-5 Mg) 2 tab PO Q4H PRN PRN Reason: Pain (moderate 4-6) Last Admin: 11/28/19 12:49 Dose: 2 tab Documented by: Oxytocin (Pitocin) 10 unit IM ASDIRECTED PRN PRN Reason: Excessive Vaginal Bleeding Sodium Chloride (Saline Flush) 10 ml FLUSH ASDIRECTED PRN PRN Reason: Keep Vein Open Sodium Chloride (Saline Flush) 2.5 ml FLUSH ASDIRECTED PRN PRN Reason: Keep Vein Open Sodium Chloride (Normal Saline) 10 ml IV ASDIRECTED PRN PRN Reason: IV Use Discontinued Medications Citric Acid/Sodium Citrate (Bicitra Solution) 30 ml PO ONETIME ONE Stop: 11/27/19 05:36 Droperidol (Inapsine) 0.625 mg IVPUSH ONETIME ONE Stop: 11/27/19 13:53 Last Admin: 11/27/19 15:25 Dose: 0.625 mg Documented by: Fentanyl (Sublimaze) 50 mcg IVPUSH Q5M PRN PRN Reason: Pain (severe 7-10) Stop: 11/28/19 07:37 Cefazolin Sodium/Dextrose 2 gm (/ Premix) 50 mls @ 100 mls/hr IV ONETIME ONE Stop: 11/27/19 06:04 Last Admin: 11/27/19 11:57 Dose: 100 mls/hr Documented by: Ketorolac Tromethamine (Toradol) 30 mg IVPUSH Q6H TRACEY Stop: 11/28/19 09:31 Last Admin: 11/28/19 12:51 Dose: Not Given Documented by: Morphine Sulfate (Duramorph Pf) Confirm Administered Dose 10 mg .ROUTE .STK-MED ONE Stop: 11/27/19 07:11 Nalbuphine HCl (Nubain) 2.5 mg IVPUSH Q3H PRN PRN Reason: Pruritis Stop: 11/28/19 07:37 Last Admin: 11/27/19 23:31 Dose: 2.5 mg Documented by: Ondansetron HCl (Zofran) Confirm Administered Dose 4 mg .ROUTE .STK-MED ONE Stop: 11/27/19 08:27 Oxytocin (Pitocin) Confirm Administered Dose 20 unit .ROUTE .STK-MED ONE Stop: 11/27/19 08:02 Phenylephrine HCl (Luis Manuel-Synephrine) Confirm Administered Dose 10 mg .ROUTE .STK- MED ONE Stop: 11/27/19 07:10 - Infant Interaction Support Person: Significant Other - Recovery Exam Fundal Tone: Firm Fundal Level: 1 Fingerbreadths Below Umbilicus Fundal Placement: Midline Lochia Amount: Scant Lochia Color: Rubra/Red Perineum Description: Intact, Minimal Bruising/Swelling Episiotomy/Laceration: None Bladder Status: Nonpalpable, Indwelling Catheter in Place Urinary Elimination: Indwelling Catheter - Exam General: Alert HEENT: Pupils Equal Neck: Supple Lungs: Clear to Auscultation Cardiovascular: Regular Rate, Regular Rhythm GI/Abdominal Exam: Normal Bowel Sounds Extremities: Normal Inspection - Problem List & Annotations (1) delivery delivered SNOMED Code(s): 788700627 Code(s): O82 - ENCOUNTER FOR DELIVERY WITHOUT INDICATION Status: Acute Current Visit: Yes - Problem List Review Problem List Initiated/Reviewed/Updated: Yes - My Orders Last 24 Hours: My Active Orders 11/27/19 21:00 Docusate Sodium [Colace] 100 mg PO BID - Assessment Assessment:: 39yo s/p Repeat , POD1 ambulating , voiding and tolerating regular diet Has met postop goals - Plan Plan:: Routine care Continue pain management as needed
[2019-11-28] MEDS: Docusate Sodium 100 MG Cap PO SCH (20:55)
[2019-11-28] MEDS: Ibuprofen 800 MG Tab PO PRN (20:55)
[2019-11-29] MEDS: Acetaminophen/oxyCODONE 325-5 MG Tab PO PRN ×2 (01:08→06:28)
[2019-11-29] MEDS: Ibuprofen 800 MG Tab PO PRN (06:20)
--- NOTE | 2019-11-29 08:56 | PCM.PNPP ---
- General Info Date of Service: 11/29/19 Subjective Update: 39yo s/p Repeat , POD 2 ambulating , voiding and tolerating regular diet Breast and bottle feeding Functional Status: Reports: Pain Controlled, Tolerating Diet, Ambulating, Urinating - Review of Systems General: Reports: No Symptoms HEENT: Reports: No Symptoms Pulmonary: Reports: No Symptoms Cardiovascular: Reports: No Symptoms Gastrointestinal: Reports: No Symptoms Genitourinary: Reports: No Symptoms Musculoskeletal: Reports: No Symptoms Skin: Reports: No Symptoms Neurological: Reports: No Symptoms Psychiatric: Reports: No Symptoms - General Info Date of Service: 11/29/19 - Patient Data Vital Signs - Most Recent: Last Vital Signs Temp 36.3 C 11/29/19 04:27 Pulse 64 11/29/19 04:27 Resp 16 11/29/19 04:27 BP 133/76 11/29/19 04:27 Pulse Ox 94 L 11/29/19 04:27 Weight - Most Recent: 118.841 kg Med Orders - Current: Current Medications Bisacodyl (Dulcolax) 10 mg RECTAL ONETIME PRN PRN Reason: Constipation Diphenhydramine HCl (Benadryl) 25 mg IVPUSH Q6H PRN PRN Reason: Itching or Nausea Docusate Sodium (Colace) 100 mg PO BID [facility] Last Admin: 11/28/19 20:55 Dose: 100 mg Documented by: Emollient Ointment (Lansinoh Hpa) 0 gm TOP ASDIRECTED PRN PRN Reason: Sore Nipples Oxytocin/Sodium Chloride (Oxytocin 30 Unit/500 Ml-Ns) 30 unit in 500 mls @ 250 mls/hr IV TITRATE TRACEY Lactated Ringer's (Ringers, Lactated) 1,000 mls @ 500 mls/hr IV BOLUS [facility] Last Admin: 11/27/19 07:25 Dose: 999 mls/hr Documented by: Lactated Ringer's (Ringers, Lactated) 1,000 mls @ 125 mls/hr IV ASDIRECTED TRACEY Last Admin: 11/27/19 16:21 Dose: 125 mls/hr Documented by: Oxytocin/Lactated Ringer's (Pitocin In Lr 30 Units/500 Ml) 30 unit in 500 mls @ 125 mls/hr IV TITRATE TRACEY; Protocol Tranexamic Acid 1,000 mg/ (Sodium Chloride) 110 mls @ 660 mls/hr IV ONETIME PRN PRN Reason: Bleeding Ibuprofen (Motrin) 800 mg PO Q8H PRN PRN Reason: mild pain or fever Last Admin: 11/29/19 06:20 Dose: 800 mg Documented by: Methylergonovine Maleate (Methergine) 0.2 mg IM ONETIME PRN PRN Reason: Excessive Vaginal Bleeding Misoprostol (Cytotec) 1,000 mcg RECTAL ONETIME PRN PRN Reason: excessive bleeding Ondansetron HCl (Zofran) 4 mg IVPUSH Q4H PRN PRN Reason: Nausea/Vomiting Last Admin: 11/27/19 13:31 Dose: 4 mg Documented by: Oxycodone/Acetaminophen (Percocet 325-5 Mg) 1 tab PO ONETIME PRN PRN Reason: Pain (moderate 4-6) Oxycodone/Acetaminophen (Percocet 325-5 Mg) 1 tab PO Q4H PRN PRN Reason: Pain (moderate 4-6) Last Admin: 11/28/19 19:47 Dose: 1 tab Documented by: Oxycodone/Acetaminophen (Percocet 325-5 Mg) 2 tab PO Q4H PRN PRN Reason: Pain (moderate 4-6) Last Admin: 11/29/19 06:28 Dose: 2 tab Documented by: Oxytocin (Pitocin) 10 unit IM ASDIRECTED PRN PRN Reason: Excessive Vaginal Bleeding Sodium Chloride (Saline Flush) 10 ml FLUSH ASDIRECTED PRN PRN Reason: Keep Vein Open Sodium Chloride (Saline Flush) 2.5 ml FLUSH ASDIRECTED PRN PRN Reason: Keep Vein Open Sodium Chloride (Normal Saline) 10 ml IV ASDIRECTED PRN PRN Reason: IV Use Discontinued Medications Citric Acid/Sodium Citrate (Bicitra Solution) 30 ml PO ONETIME ONE Stop: 11/27/19 05:36 Droperidol (Inapsine) 0.625 mg IVPUSH ONETIME ONE Stop: 11/27/19 13:53 Last Admin: 11/27/19 15:25 Dose: 0.625 mg Documented by: Fentanyl (Sublimaze) 50 mcg IVPUSH Q5M PRN PRN Reason: Pain (severe 7-10) Stop: 11/28/19 07:37 Cefazolin Sodium/Dextrose 2 gm (/ Premix) 50 mls @ 100 mls/hr IV ONETIME ONE Stop: 11/27/19 06:04 Last Admin: 11/27/19 11:57 Dose: 100 mls/hr Documented by: Ketorolac Tromethamine (Toradol) 30 mg IVPUSH Q6H TRACEY Stop: 11/28/19 09:31 Last Admin: 11/28/19 12:51 Dose: Not Given Documented by: Morphine Sulfate (Duramorph Pf) Confirm Administered Dose 10 mg .ROUTE .STK-MED ONE Stop: 11/27/19 07:11 Nalbuphine HCl (Nubain) 2.5 mg IVPUSH Q3H PRN PRN Reason: Pruritis Stop: 11/28/19 07:37 Last Admin: 11/27/19 23:31 Dose: 2.5 mg Documented by: Ondansetron HCl (Zofran) Confirm Administered Dose 4 mg .ROUTE .STK-MED ONE Stop: 11/27/19 08:27 Oxytocin (Pitocin) Confirm Administered Dose 20 unit .ROUTE .STK-MED ONE Stop: 11/27/19 08:02 Phenylephrine HCl (Luis Manuel-Synephrine) Confirm Administered Dose 10 mg .ROUTE .STK- MED ONE Stop: 11/27/19 07:10 - Infant Interaction Support Person: Significant Other - Recovery Exam Fundal Tone: Firm Fundal Level: 1 Fingerbreadths Below Umbilicus Fundal Placement: Midline Lochia Amount: Small Lochia Color: Rubra/Red Perineum Description: Intact, Minimal Bruising/Swelling Episiotomy/Laceration: None Bladder Status: Voiding Urinary Elimination: Indwelling Catheter - Exam General: Alert HEENT: Pupils Equal Neck: Supple Lungs: Clear to Auscultation Cardiovascular: Regular Rate, Regular Rhythm GI/Abdominal Exam: Normal Bowel Sounds Extremities: Normal Inspection Wound/Incisions: Dressing Dry and Intact Neurological: No New Focal Deficit Psy/Mental Status: Alert - Problem List & Annotations (1) delivery delivered SNOMED Code(s): 071850455 Code(s): O82 - ENCOUNTER FOR DELIVERY WITHOUT INDICATION Status: Acute Current Visit: Yes - Problem List Review Problem List Initiated/Reviewed/Updated: Yes - Assessment Assessment:: 39yo s/p Repeat , POD2 Ambulating , voiding and tolerating regular diet Has met postop goals Breast and Bottle feeding - Plan Plan:: Routine care Continue pain management as needed Discharge home today
[2019-11-29 10:27] VITALS: BP 131/82; PULSE 65
== END 2019-11-29 11:11 | disposition home or self-care (01) | DRG 788 ==
LOC: MW.OB 05:23
PROVIDERS: ADMIT Obstetrics & Gynecology; ATTEND Obstetrics & Gynecology
PROC: 10D00Z1 Extraction of Products of Conception, Low, Open Approach (ICD-10-PCS; principal; 2019-11-27)
DX: O34.211 Maternal care for low transverse scar from previous cesarean delivery (principal); O99.334 Smoking (tobacco) complicating childbirth; F17.210 Nicotine dependence, cigarettes, uncomplicated; O99.214 Obesity complicating childbirth; E66.9 Obesity, unspecified; Z3A.39 39 weeks gestation of pregnancy; Z37.0 Single live birth
CPT/HCPCS: 01961; 36415; 59025; 82803; 85014; 85018; 85027; 86592; 86850; 86900; 86901; A9270-GY; J0690; J1790; J1885; J2270; J2300; J2370; J2405; J2590; J7120

== ENCOUNTER 2020-01-13 17:28 | Emergency (ER) | payer MEDICAID ==
--- NOTE | 2020-01-13 18:20 | EDM.PDOC ---
ED HPI GENERAL MEDICAL PROBLEM - General Chief Complaint: ENT Problem Stated Complaint: STREP THROAT Time Seen by Provider: 01/13/20 17:33 Source of Information: Reports: Patient History Limitations: Reports: No Limitations - History of Present Illness INITIAL COMMENTS - FREE TEXT/NARRATIVE: HISTORY AND PHYSICAL: History of present illness: Patient is a 39-year-old female who presents to the emergency room with complaints of sore throat and lymph node enlargement bilaterally. She states she is concerned she may have strep throat as she has had in the past and this feels similar. Patient denies any fever, chills, headache, change in vision, syncope or near syncope. Denies any chest pain, back pain, shortness of breath or cough. Denies any abdominal pain, nausea, vomiting, diarrhea, constipation or dysuria. Has not noted any blood in urine or stool. Patient has been eating and drinking appropriately. Review of systems: As per history of present illness and below otherwise all systems reviewed and negative. Past medical history: As per history of present illness and as reviewed below otherwise noncontributory. Surgical history: As per history of present illness and as reviewed below otherwise noncontributory. Social history: See social history for further information Family history: As per history of present illness and as reviewed below otherwise n oncontributory. Physical exam: General: Well developed and well nourished 39-year-old female. Alert and orientated x 3. Nontoxic in appearance and in no acute distress. Vital signs are stable and have been reviewed by me. Nursing notes were reviewed. HEENT: Atraumatic, normocephalic, pupils equal and reactive bilaterally, negative for conjunctival pallor or scleral icterus, mucous membranes moist, TMs normal bilaterally, throat erythematous without exudate or pillar shifting/fullness, neck supple, nontender, trachea midline. No drooling or trismus noted. No meningeal signs. No hot potato voice noted. Lungs: Clear to auscultation, breath sounds equal bilaterally, chest nontender. Normal work of breathing, no accessory muscles used. Heart: S1S2, regular rate and rhythm without overt murmur Abdomen: Soft, nondistended, nontender. Skin: Intact, warm, dry. No lesions or rashes noted. Hematologic: No petechiae or purpra. Mucosa appropriate color and normal nail bed color and refill. Extremities: Atraumatic, moves all extremities per self without difficulty or deficits, negative for cords or calf pain. Neurovascular unremarkable. Neuro: Awake, alert, oriented. Cranial nerves II through XII unremarkable. Cerebellum unremarkable. Motor and sensory unremarkable throughout. Exam nonfocal. Psychiatric: Mood and affect are appropriate. Normal thought process. Answering questions appropriately. Notes: Strep screening is negative. Will treat with Augmentin. I have spoken with the patient/caregiver and discussed today's findings, in addition to providing specific details for plan of care. Reassessment at the time of disposition demonstrates that the patient is in no acute distress. The patient has remained stable throughout the entire ED visit and is without objective evidence for acute process requiring urgent intervention or hospitalization. The patient is stable for discharge, counseling was provided as , and we discussed in great detail signs and symptoms that would prompt them to return to the Emergency Department. Medication, follow up and supportive care measures were reviewed and discussed. Voices understanding and is agreeable to plan of care. Denies any further questions or concerns at this time. Diagnostics: Strep screening Therapeutics: None Prescription: Augmentin Impression: Pharyngitis Plan: 1. Today your strep screening is negative. Take your medication as directed. Good handwashing and contact precautions as we discussed. 2. Warm Salt water gargles (rinse and spit) 3-4 x daily. Please get a new tooth brush after completion of your medication 3. Tylenol and or ibuprofen as needed for pain management. 4. Follow-up with your primary care provider in the next 1-2 days. Return to the ED as needed and as discussed. Definitive disposition and diagnosis as appropriate pending reevaluation and review of above. - Related Data Allergies Allergy/AdvReac Type Severity Reaction Status Date / Time No Known Allergies Allergy Verified 01/13/20 18:06 Home Meds: Home Meds Vits #93/Iron Fum/FA [ Formula Tablet] 1 each PO DAILY 06/20/19 [History] Calcium Carb/Magnesium Hydrox [Rolaids Chewable Tablet] 1 tab.chew CHEW ASDIRECTED PRN 11/21/19 [History] Ibuprofen [Motrin] 800 mg PO Q8H PRN 5 Days #30 tablet 11/29/19 [Rx] Amoxicillin/Clavulanate K [Augmentin 875-125 MG] 1 tab PO BID 10 Days #20 tablet 01/13/20 [Rx] Past Medical History - Past Health History Medical/Surgical History: Denies Medical/Surgical History HEENT History: Reports: Other (See Below) Other HEENT History: wears glasses/contacts Cardiovascular History: Reports: None Respiratory History: Reports: None Gastrointestinal History: Reports: Other (See Below) Other Gastrointestinal History: heartburn during Genitourinary History: Reports: Renal Calculus 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: Musculoskeletal History: Reports: Fracture Other Musculoskeletal History: left hip & pelvis Neurological History: Reports: None Psychiatric History: Reports: None Endocrine/Metabolic History: Reports: Obesity/BMI 30+ Hematologic History: Reports: None Immunologic History: Reports: None Oncologic (Cancer) History: Reports: None Dermatologic History: Reports: None - Infectious Disease History Infectious 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 - Past Surgical History Cardiovascular Surgical History: Reports: None Respiratory Surgical History: Reports: None Female Surgical History: Reports: Section, D&C, Lithotripsy/ESWL, Ureteral Stent Endocrine Surgical History: Reports: None Other Musculoskeletal Surgeries/Procedures:: ORIF left hip- has plates and screws in hip and pelvis Oncologic Surgical History: Reports: None Dermatological Surgical History: Reports: None Social & Family History - Family History Family Medical History: Noncontributory HEENT: Reports: None Cardiac: Reports: None Respiratory: Reports: None GI: Reports: Cholelithiasis : Reports: None OBGYN: Reports: Musculoskeletal: Reports: Fibromyalgia Neurological: Reports: None Psychiatric: Reports: None Endocrine/Metabolic: Reports: Hypothyroidism, Obesity/MBI 30+ Hematologic: Reports: None Immunologic: Reports: None Dermatologic: Reports: None Oncologic: Reports: None - Tobacco Use Smoking Status *Q: Current Every Day Smoker Years of Tobacco use: 20 Packs/Tins Daily: 0.5 - Caffeine Use Caffeine Use: Reports: Tea - Recreational Drug Use Recreational Drug Use: No ED ROS ENT - Review of Systems Review Of Systems: Comprehensive ROS is negative, except as noted in HPI. ED EXAM, ENT - Physical Exam Exam: See Below (See dictation) Course - Vital Signs Last Recorded V/S: Last Vital Signs Temp 97.8 F 01/13/20 18:01 Pulse 96 01/13/20 18:01 Resp 16 01/13/20 18:01 BP 120/64 01/13/20 18:01 Pulse Ox 98 01/13/20 18:01 - Orders/Labs/Meds Orders: Active Orders 24 hr Category Date Time Status CULTURE STREP A CONFIRMATION [] Stat Lab 01/13/20 17:46 Results STREP SCRN A RAPID W CULT CONF [] Stat Lab 01/13/20 17:46 Results Departure - Departure Time of Disposition: 18:19 Disposition: Home, Self-Care 01 Clinical Impression: Pharyngitis Qualifiers: Pharyngitis/tonsillitis etiology: unspecified etiology Qualified Code(s): J02.9 - Acute pharyngitis, unspecified - Discharge Information Prescriptions: Amoxicillin/Clavulanate K [Augmentin 875-125 MG] 1 tab PO BID 10 Days #20 tablet Instructions: Pharyngitis, [id number] Referrals: Miles Galindo MD [Primary Care Provider] - Forms: ED Department Discharge Additional Instructions: The following information is given to patients seen in the emergency department who are being discharged to home. This information is to outline your options for follow-up care. We provide all patients seen in our emergency department with a follow-up referral. The need for follow-up, as well as the timing and circumstances, are variable depending upon the specifics of your emergency department visit. If you don't have a primary care physician on staff, we will provide you with a referral. We always advise you to contact your personal physician following an emergency department visit to inform them of the circumstance of the visit and for follow-up with them and/or the need for any referrals to a consulting specialist. The emergency department will also refer you to a specialist when appropriate. This referral assures that you have the opportunity for follow-up care with a specialist. All of these measure are taken in an effort to provide you with optimal care, which includes your follow-up. Under all circumstances we always encourage you to contact your private physician who remains a resource for coordinating your care. When calling for follow-up care, please make the office aware that this follow-up is from your recent emergency room visit. If for any reason you are refused follow-up, please contact the [facility] Emergency Department at and asked to speak to the emergency department charge nurse. [facility] [address] [place] [address] [id number] [address] [id number] Thank you for choosing the [facility] emergency department in [place] for your medical needs today. It was a pleasure caring for you. Today you were seen in the emergency department for sore throat. 1. Today your strep screening is negative. Take your medication as directed. Good handwashing and contact precautions as we discussed. 2. Warm Salt water gargles (rinse and spit) 3-4 x daily. Please get a new tooth brush after completion of your medication 3. Tylenol and or ibuprofen as needed for pain management. 4. Follow-up with your primary care provider in the next 1-2 days. Return to the ED as needed and as discussed. Sepsis Event Note (ED) - Evaluation Sepsis Screening Result: No Definite Risk - Focused Exam Vital Signs: Vital Signs Temp Pulse Resp BP Pulse Ox 01/13/20 18:01 97.8 F 96 16 120/64 98 - My Orders Last 24 Hours: My Active Orders 01/13/20 17:46 CULTURE STREP A CONFIRMATION [RM] Stat STREP SCRN A RAPID W CULT CONF [RM] Stat - Assessment/Plan Last 24 Hours: My Active Orders 01/13/20 17:46 CULTURE STREP A CONFIRMATION [RM] Stat STREP SCRN A RAPID W CULT CONF [] Stat
[2020-01-13 18:32] VITALS: BP 119/71; PULSE 98
== END 2020-01-13 18:32 | disposition home or self-care (01) ==
LOC: MW.ED 17:28
DX: J02.9 Acute pharyngitis, unspecified (principal); F17.210 Nicotine dependence, cigarettes, uncomplicated; E66.9 Obesity, unspecified; Z68.41 Body mass index [BMI] 40.0-44.9, adult
CPT/HCPCS: 87081; 87880-QW; 99282; 99283

== ENCOUNTER 2020-08-16 10:06 | Emergency (ER) | payer MEDICAID ==
--- NOTE | 2020-08-16 10:53 | EDM.PDOC ---
ED HPI GENERAL MEDICAL PROBLEM - General Chief Complaint: Back Pain or Injury Stated Complaint: PAIN RIGHT SIDE BACK Time Seen by Provider: 08/16/20 10:16 Source of Information: Reports: Patient History Limitations: Reports: No Limitations - History of Present Illness INITIAL COMMENTS - FREE TEXT/NARRATIVE: HISTORY AND PHYSICAL: History of present illness: Patient is a 40-year-old female who presents to the emergency room with complaints of right lower back pain. 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 Today while she was driving she noticed some right lower back pain, states she was concerned she had a kidney infection or a kidney stone as she has had 1 of these in the past that required hospitalization. She denies any injury, trauma or falls. Patient denies any fever, chills, headache, change in vision, syncope or near syncope. Denies any chest pain, back pain, shortness of breath or cough. Denies any abdominal pain, nausea, vomiting, diarrhea, constipation or dysuria. Has not noted any blood in urine or stool. Patient has been eating and drinking appropriately. Pain worsens with stretching of her low back and feels improved when she rubs the area. Review of systems: As per history of present illness and below otherwise all systems reviewed and negative. Past medical history: As per history of present illness and as reviewed below otherwise noncontributory. Surgical history: As per history of present illness and as reviewed below otherwise noncontributory. Social history: See social history for further information Family history: As per history of present illness and as reviewed below otherwise noncontributory. Physical exam: General: Well developed and well nourished. Alert and orientated x 3. Nontoxic in appearance and in no acute distress. Vital signs are stable and have been reviewed by me. Nursing notes were reviewed. HEENT: Atraumatic, normocephalic, pupils equal and reactive bilaterally, negative for conjunctival pallor or scleral icterus, mucous membranes moist, trachea midline. No drooling or trismus noted. No meningeal signs. No hot potato voice noted. Lungs: Clear to auscultation bilaterally. No wheezes, rales, or rhonchi. Chest nontender. Normal work of breathing, no accessory muscles used. Heart: S1S2, regular rate and rhythm without overt murmur, gallops, or rubs. No JVD. No peripheral edema Abdomen: Soft, nondistended, nontender. Normoactive bowel sounds. Negative for masses or costovertebral tenderness. C-spine/Back: No pinpoint vertebral tenderness upon palpation. No crepitus, step-offs or obvious deformities. Patient is ambulatory into the emergency room without difficulty or deficit. Able to rock back on heels and walk on toes. Denies any urinary or fecal incontinence. Denies any numbness, tingling or saddle paresthesia. No concerns of serious infection, fracture or cord compression, or cauda equina syndrome. Deep tendon reflexes brisk bilaterally. Skin: Intact, warm, dry. No lesions or rashes noted. Hematologic: No petechiae or purpra. Mucosa appropriate color and normal nail bed color and refill. Extremities: Atraumatic, moves all extremities per self without difficulty or deficits, negative for cords or calf pain. Neurovascular unremarkable. Neuro: Awake, alert, oriented. Cranial nerves II through XII unremarkable. Cerebellum unremarkable. Motor and sensory unremarkable throughout. Exam nonfocal. Psychiatric: Mood and affect are appropriate. Normal thought process. Answering questions appropriately. Notes: *This patient was seen and evaluated during the 2019 SARS-CoV-2 novel coronavirus pandemic period. Community viral transmission is ongoing at time of this encounter and the emergency department is operating under pandemic response procedures. UA is within normal limits. The area that is painful is not near the kidney, she has no flank tenderness. This does appear muscular in nature secondary to her occupation. I have talked with the patient about today's findings, in addition to providing specific details for plan of care. Reassessment at the time of disposition demonstrates that the patient is in no acute distress. The patient is stable for discharge, counseling was provided and we discussed in great detail signs and symptoms that would prompt them to return to the Emergency Department. Medication, follow up and supportive care measures were reviewed and discussed. Voices understanding and is agreeable to plan of care. Denies any further questions or concerns at this time. Diagnostics: UA, hCGU Therapeutics: None Prescription: Tramadol, diclofenac Impression: Back pain Plan: 1. You were evaluated today on an emergent basis. Your urine shows no evidence of infection or blood (kidney stone). Rest and gentle ice or heat to area for comfort. 2. You can alternate Tylenol as needed for pain and fever management. Diclofenac is an anti-inflammatory, nonnarcotic, that you can take while working. He can take this twice a day, every 12 hours, but please take with food. Do not take any additional NSAIDs such as ibuprofen or Aleve while taking this medication. Tramadol has been given for nighttime use. This medication may cause drowsiness so do not take it while driving or needing to be functioning outside of the house. 3. We encourage you to follow up with your primary care provider and/or r ecommended specialist in the next few days for re-evaluation and further care/management. 4. If your symptoms should worsen, new symptoms develop or any of the signs and symptoms we discussed should arise please return to the emergency room or call 911 (if needed). Definitive disposition and diagnosis as appropriate pending reevaluation and review of above. - Related Data Allergies Allergy/AdvReac Type Severity Reaction Status Date / Time No Known Allergies Allergy Verified 01/13/20 18:06 Home Meds: Home Meds Vits #93/Iron Fum/FA [ Formula Tablet] 1 each PO DAILY 06/20/19 [History] Calcium Carb/Magnesium Hydrox [Rolaids Chewable Tablet] 1 tab.chew CHEW ASDIRECTED PRN 11/21/19 [History] Ibuprofen [Motrin] 800 mg PO Q8H PRN 5 Days #30 tablet 11/29/19 [Rx] Amoxicillin/Clavulanate K [Augmentin 875-125 MG] 1 tab PO BID 10 Days #20 tablet 01/13/20 [Rx] Diclofenac Sodium [Voltaren] 75 mg PO BIDMEALS PRN #30 tab.cr 08/16/20 [Rx] traMADol [Ultram] 50 mg PO Q4H PRN #15 tab 08/16/20 [Rx] Past Medical History - Past Health History Medical/Surgical History: Denies Medical/Surgical History HEENT History: Reports: Other (See Below) Other HEENT History: wears glasses/contacts Cardiovascular History: Reports: None Respiratory History: Reports: None Gastrointestinal History: Reports: Other (See Below) Other Gastrointestinal History: heartburn during Genitourinary History: Reports: Renal Calculus [employer] History: Reports: Musculoskeletal History: Reports: Fracture Other Musculoskeletal History: left hip & pelvis Neurological History: Reports: None Psychiatric History: Reports: None Endocrine/Metabolic History: Reports: Obesity/BMI 30+ Hematologic History: Reports: None Immunologic History: Reports: None Oncologic (Cancer) History: Reports: None Dermatologic History: Reports: None - Infectious Disease History Infectious 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 - Past Surgical History Cardiovascular Surgical History: Reports: None Respiratory Surgical History: Reports: None Female Surgical History: Reports: Section, D&C, Lithotripsy/ESWL, Ureteral Stent Endocrine Surgical History: Reports: None Other Musculoskeletal Surgeries/Procedures:: ORIF left hip- has plates and screws in hip and pelvis Oncologic Surgical History: Reports: None Dermatological Surgical History: Reports: None Social & Family History - Family History Family Medical History: No Pertinent Family History HEENT: Reports: None Cardiac: Reports: None Respiratory: Reports: None GI: Reports: Cholelithiasis : Reports: None OBGYN: Reports: Musculoskeletal: Reports: Fibromyalgia Neurological: Reports: None Psychiatric: Reports: None Endocrine/Metabolic: Reports: Hypothyroidism, Obesity/MBI 30+ Hematologic: Reports: None Immunologic: Reports: None Dermatologic: Reports: None Oncologic: Reports: None - Caffeine Use Caffeine Use: Reports: Tea ED ROS GENERAL - Review of Systems Review Of Systems: Comprehensive ROS is negative, except as noted in HPI. ED EXAM,LOWER BACK PAIN/INJURY - Physical Exam Exam: See Below (See dictation) Course - Orders/Labs/Meds Labs: Laboratory Tests 08/16/20 08/16/20 Range/Units 10:34 10:34 Urine Color YELLOW Urine Appearance CLEAR Urine pH 6.0 (5.0-8.0) Ur Specific [place] 1.025 (1.001-1.035) Urine Protein NEGATIVE (NEGATIVE) mg/dL Urine Glucose (UA) NEGATIVE (NEGATIVE) mg/dL Urine Ketones NEGATIVE (NEGATIVE) mg/dL Urine Occult Blood NEGATIVE (NEGATIVE) Urine Nitrite NEGATIVE (NEGATIVE) Urine Bilirubin NEGATIVE (NEGATIVE) Urine Urobilinogen 0.2 (<2.0) EU/dL Ur Leukocyte Esterase NEGATIVE (NEGATIVE) Urine HCG, Qual NEGATIVE (NEGATIVE) Departure - Departure Time of Disposition: 11:14 Disposition: Home, Self-Care 01 Clinical Impression: Back pain Qualifiers: Back pain location: low back pain Chronicity: acute Back pain laterality: right Sciatica presence: without sciatica Qualified Code(s): M54.5 - Low back pain - Discharge Information Prescriptions: traMADol [Ultram] 50 mg PO Q4H PRN #15 tab PRN Reason: Pain Diclofenac Sodium [Voltaren] 75 mg PO BIDMEALS PRN #30 tab.cr PRN Reason: Pain Instructions: Acute Back Pain, Adult Referrals: Miles Galindo MD [Primary Care Provider] - Forms: ED Department Discharge Additional Instructions: The following information is given to patients seen in the emergency department who are being discharged to home. This information is to outline your options for follow-up care. We provide all patients seen in our emergency department with a follow-up referral. The need for follow-up, as well as the timing and circumstances, are variable depending upon the specifics of your emergency department visit. If you don't have a primary care physician on staff, we will provide you with a referral. We always advise you to contact your personal physician following an emergency department visit to inform them of the circumstance of the visit and for follow-up with them and/or the need for any referrals to a consulting specialist. The emergency department will also refer you to a specialist when appropriate. This referral assures that you have the opportunity for follow-up care with a specialist. All of these measure are taken in an effort to provide you with optimal care, which includes your follow-up. Under all circumstances we always encourage you to contact your private physician who remains a resource for coordinating your care. When calling for follow-up care, please make the office aware that this follow-up is from your recent emergency room visit. If for any reason you are refused follow-up, please contact the [facility] Emergency Department at and asked to speak to the emergency department charge nurse. [facility] [address] [place] [id number] [address] Thank you for choosing the [facility] emergency department in [place] for your medical needs today. It was a pleasure caring for you. Today you were seen in the emergency department for back pain. 1. You were evaluated today on an emergent basis. Your urine shows no evidence of infection or blood (kidney stone). Rest and gentle ice or heat to area for comfort. 2. You can alternate Tylenol as needed for pain and fever management. Diclofenac is an anti-inflammatory, nonnarcotic, that you can take while working. He can take this twice a day, every 12 hours, but please take with food. Do not take any additional NSAIDs such as ibuprofen or Aleve while taking this medication. Tramadol has been given for nighttime use. This medication may cause drowsiness so do not take it while driving or needing to be functioning outside of the house. 3. We encourage you to follow up with your primary care provider and/or recommended specialist in the next few days for re-evaluation and further care/management. 4. If your symptoms should worsen, new symptoms develop or any of the signs and symptoms we discussed should arise please return to the emergency room or call 911 (if needed).
[2020-08-16 11:33] VITALS: BP 127/78; PULSE 90
== END 2020-08-16 11:30 | disposition home or self-care (01) ==
LOC: MW.ED 10:06
DX: M54.5 Low back pain (principal); E66.9 Obesity, unspecified; Z68.41 Body mass index [BMI] 40.0-44.9, adult
CPT/HCPCS: 81003; 81025; 99283

== ENCOUNTER 2020-12-21 10:37 | Emergency (ER) | payer MEDICAID ==
[2020-12-21 11:02] VITALS: BP 122/67; PULSE 85
[2020-12-21] MEDS ORDERED: Lidocaine 2% Viscous Solution 15 ML Cup PO ONE (11:21)
[2020-12-21] MEDS ORDERED: Benzocaine 20% Topical Spray UD MUCMEM ONE (11:21)
--- NOTE | 2020-12-21 11:22 | EDM.PDOC ---
ED HPI GENERAL MEDICAL PROBLEM - General Chief Complaint: ENT Problem Stated Complaint: TOOTH PAIN Time Seen by Provider: 12/21/20 11:01 Source of Information: Reports: Patient History Limitations: Reports: No Limitations - History of Present Illness INITIAL COMMENTS - FREE TEXT/NARRATIVE: HISTORY AND PHYSICAL: History of present illness: Patient is a 40-year-old female who presents emergency room today with concern of dental abscess over the past 2 to 3 days. Patient states that she has had prior dental abscess that had had to be opened and drained and states she started feeling this 1 a couple days ago and today was more swollen when she woke up. Patient states that she plans to follow-up with a dentist for definitive treatment but states that she has not yet done this. Patient states that she has pain with chewing on the affected side but has been able to eat and drink. Patient denies any other symptoms or concerns. Patient denies fever, chills, chest pain, shortness of breath, or cough. Denies headache, neck stiff ness, change in vision, syncope, or near syncope. Denies nausea, vomiting, abdominal pain, diarrhea, constipation, or dysuria. Has not noted any blood in urine or stool. Patient has been eating and drinking appropriately. Review of systems: As per history of present illness and below otherwise all systems reviewed and negative. Past medical history: As per history of present illness and as reviewed below otherwise noncontributory. Surgical history: As per history of present illness and as reviewed below otherwise noncontributory. Social history: See social history for further information Family history: As per history of present illness and as reviewed below otherwise noncontributory. Physical exam: General: Patient is alert, oriented, and in no acute distress. Patient sitting comfortably on exam table. Vitals are stable and reviewed by me. HEENT: There is a dental abscess just superior to tooth #14 with surrounding edema of the maxilla. Otherwise, atraumatic, normocephalic, pupils equal and reactive bilaterally, negative for conjunctival pallor or scleral icterus, mucous membranes moist, TMs normal bilaterally, throat clear, neck supple, nontender, trachea midline. No drooling or trismus noted. No meningeal signs. No hot potato voice noted. Lungs: Clear to auscultation, breath sounds equal bilaterally, chest nontender. Heart: S1S2, regular rate and rhythm without overt murmur Abdomen: Soft, nondistended, nontender. Negative for masses or hepatosplenomegaly. Negative for costovertebral tenderness. Pelvis: Stable nontender. Genitourinary: Deferred. Rectal: Deferred. Skin: Intact, warm, dry. No lesions or rashes noted. Extremities: Atraumatic, negative for cords or calf pain. Neurovascular unremarkable. Neuro: Awake, alert, oriented. Cranial nerves II through XII unremarkable. Cerebellum unremarkable. Motor and sensory unremarkable throughout. Exam nonfocal. Notes: Sinus symptoms that were prompt return to the ED thoroughly discussed with patient. Discussed importance of follow-up with a dentist for definitive treatment. Voices understanding and is agreeable to plan of care. Denies any further questions or concerns at this time. Diagnostics: None Therapeutics: I&D of dental abscess Prescription: Augmentin Impression: Dental abscess Plan: 1. Please take medication as prescribed. 2. Tylenol and/or ibuprofen as directed and as needed for pain management. 3. "Tooth Balls" have been given to you; apply along the gumline every 2-3 hours as needed. Do not swallow these; external use only. 4. Follow-up with a dentist for definitive care. Return to the ED as needed and as discussed. Definitive disposition and diagnosis as appropriate pending reevaluation and review of above. left upper tooth Pain Score (Numeric/FACES): 6 - Related Data Allergies Allergy/AdvReac Type Severity Reaction Status Date / Time No Known Allergies Allergy Verified 12/21/20 11:02 Home Meds: Home Meds Amoxicillin/Potassium Clav [Augmentin 875-125 Tablet] 1 each PO BID 10 Days #20 tablet 12/21/20 [Rx] Past Medical History - Past Health History Medical/Surgical History: Denies Medical/Surgical History HEENT History: Reports: Other (See Below) Other HEENT History: wears glasses/contacts Cardiovascular History: Reports: None Respiratory History: Reports: None Gastrointestinal History: Reports: Other (See Below) Other Gastrointestinal History: heartburn during Genitourinary History: Reports: Renal Calculus [employer] History: Reports: Musculoskeletal History: Reports: Fracture Other Musculoskeletal History: left hip & pelvis Neurological History: Reports: None Psychiatric History: Reports: None Endocrine/Metabolic History: Reports: Obesity/BMI 30+ Hematologic History: Reports: None Immunologic History: Reports: None Oncologic (Cancer) History: Reports: None Dermatologic History: Reports: None - Infectious Disease History Infectious 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 - Past Surgical History Head Surgeries/Procedures: Reports: None HEENT Surgical History: Reports: None Cardiovascular Surgical History: Reports: None Respiratory Surgical History: Reports: None GI Surgical History: Reports: None Female Surgical History: Reports: Section, D&C, Lithotripsy/ESWL, Ureteral Stent Endocrine Surgical History: Reports: None Neurological Surgical History: Reports: None Musculoskeletal Surgical History: Reports: ORIF Other Musculoskeletal Surgeries/Procedures:: ORIF left hip- has plates and screws in hip and pelvis Oncologic Surgical History: Reports: None Dermatological Surgical History: Reports: None Social & Family History - Family History Family Medical History: No Pertinent Family History HEENT: Reports: None Cardiac: Reports: None Respiratory: Reports: None GI: Reports: Cholelithiasis : Reports: None OBGYN: Reports: Musculoskeletal: Reports: Fibromyalgia Neurological: Reports: None Psychiatric: Reports: None Endocrine/Metabolic: Reports: Hypothyroidism, Obesity/MBI 30+ Hematologic: Reports: None Immunologic: Reports: None Dermatologic: Reports: None Oncologic: Reports: None - Tobacco Use Packs/Tins Daily: 1 - Caffeine Use Caffeine Use: Reports: Coffee - Recreational Drug Use Recreational Drug Use: No ED ROS GENERAL - Review of Systems Review Of Systems: Comprehensive ROS is negative, except as noted in HPI. ED EXAM, GENERAL - Physical Exam Exam: See Below (See dictation) Course - Vital Signs Last Recorded V/S: Last Vital Signs Temp 97.9 F 12/21/20 10:59 Pulse 85 12/21/20 10:59 Resp 18 12/21/20 10:59 BP 122/67 12/21/20 10:59 Pulse Ox 96 12/21/20 10:59 - Orders/Labs/Meds Meds: Medications Discontinued Medications Generic Name Dose Route Start Last Admin Trade Name Freq PRN Reason Stop Dose Admin Benzocaine 2 each 12/21/20 11:21 Benzocaine 20% Topical [place] [facility] MUCMEM 12/21/20 11:22 ONETIME ONE Lidocaine HCl 15 ml 12/21/20 11:21 Lidocaine 2% Viscous Solution 15 Ml Cup PO 12/21/20 11:22 ONETIME ONE Departure - Departure Time of Disposition: 11:22 Disposition: Home, Self-Care 01 Clinical Impression: Dental abscess - Discharge Information Prescriptions: Amoxicillin/Potassium Clav [Augmentin 875-125 Tablet] 1 each PO BID 10 Days #20 tablet Referrals: Miles Galindo MD [Primary Care Provider] - Forms: ED Department Discharge Additional Instructions: The following information is given to patients seen in the emergency department who are being discharged to home. This information is to outline your options for follow-up care. We provide all patients seen in our emergency department with a follow-up referral. The need for follow-up, as well as the timing and circumstances, are variable depending upon the specifics of your emergency department visit. If you don't have a primary care physician on staff, we will provide you with a referral. We always advise you to contact your personal physician following an emergency department visit to inform them of the circumstance of the visit and for follow-up with them and/or the need for any referrals to a consulting specialist. The emergency department will also refer you to a specialist when appropriate. This referral assures that you have the opportunity for follow-up care with a specialist. All of these measure are taken in an effort to provide you with optimal care, which includes your follow-up. Under all circumstances we always encourage you to contact your private physician who remains a resource for coordinating your care. When calling for follow-up care, please make the office aware that this follow-up is from your recent emergency room visit. If for any reason you are refused follow-up, please contact the [facility] Emergency Department at and asked to speak to the emergency department charge nurse. [facility] [address] [place] [id number] [id number] 1. Please take medication as prescribed. 2. Tylenol and/or ibuprofen as directed and as needed for pain management. 3. "Tooth Balls" have been given to you; apply along the gumline every 2-3 hours as needed. Do not swallow these; external use only. 4. Follow-up with a dentist for definitive care. Return to the ED as needed and as discussed. Sepsis Event Note (ED) - Focused Exam Vital Signs: Vital Signs Temp Pulse Resp BP Pulse Ox 12/21/20 10:59 97.9 F 85 18 122/67 96
== END 2020-12-21 11:33 | disposition home or self-care (01) ==
LOC: MW.ED 10:37
DX: K04.7 Periapical abscess without sinus (principal); E66.9 Obesity, unspecified; Z68.45 Body mass index [BMI] 70 or greater, adult
CPT/HCPCS: 41800; 99283; A9270

== ENCOUNTER 2021-05-20 08:11 | Emergency (ER) | payer MEDICAID ==
[2021-05-20] MEDS ORDERED: Ibuprofen 600 MG Tab PO ONE (08:51)
[2021-05-20] MEDS ORDERED: Azithromycin 250 MG Tab PO ONE (08:51)
[2021-05-20 09:11] VITALS: BP 123/76; PULSE 91
== END 2021-05-20 08:57 | disposition home or self-care (01) ==
LOC: MW.ED 08:11
DX: H66.91 Otitis media, unspecified, right ear (principal); E66.9 Obesity, unspecified; Z68.42 Body mass index [BMI] 45.0-49.9, adult; Z72.0 Tobacco use
CPT/HCPCS: 99282; A9270

== ENCOUNTER 2021-05-21 04:28 | Emergency (ER) | payer MEDICAID ==
[2021-05-21] MEDS ORDERED: Amoxicillin/Clavulanate K 875-125 MG Tab PO ONE (05:13)
[2021-05-21 05:30] VITALS: BP 125/68; PULSE 75
== END 2021-05-21 05:26 | disposition home or self-care (01) ==
LOC: MW.ED 04:28
DX: H66.91 Otitis media, unspecified, right ear (principal); E66.9 Obesity, unspecified; Z68.42 Body mass index [BMI] 45.0-49.9, adult; Z72.0 Tobacco use
CPT/HCPCS: 99282; A9270

== ENCOUNTER 2021-05-23 07:20 | Emergency (ER) | payer MEDICAID ==
[2021-05-23] MEDS ORDERED: Ketorolac 30 MG/ML SDV IM ONE (07:41)
[2021-05-23 08:02] VITALS: BP 112/68; PULSE 92
== END 2021-05-23 08:10 | disposition home or self-care (01) ==
LOC: MW.ED 07:20
DX: H66.91 Otitis media, unspecified, right ear (principal); E66.9 Obesity, unspecified; Z68.42 Body mass index [BMI] 45.0-49.9, adult
CPT/HCPCS: 96372; 99282; J1885

== ENCOUNTER 2022-06-30 17:43 | Emergency (ER) | payer MEDICAID ==
[2022-06-30] MEDS ORDERED: Tetracaine HCl/PF 0.5% 4 ML Bottle EYEBOTH ONE (17:50)
[2022-06-30 19:05] VITALS: BP 116/84; PULSE 91
== END 2022-06-30 18:58 | disposition home or self-care (01) ==
LOC: MW.ED 17:43
DX: H18.822 Corneal disorder due to contact lens, left eye (principal); E66.9 Obesity, unspecified; Z68.42 Body mass index [BMI] 45.0-49.9, adult
CPT/HCPCS: 99283; J3490

== ENCOUNTER 2022-12-14 19:36 | Emergency (ER) | payer MEDICAID ==
[2022-12-14 19:45] VITALS: BP 152/90; PULSE 92
== END 2022-12-14 19:58 | disposition home or self-care (01) ==
LOC: MW.ED 19:36
DX: K04.7 Periapical abscess without sinus (principal); E66.9 Obesity, unspecified; Z68.41 Body mass index [BMI] 40.0-44.9, adult
CPT/HCPCS: 99282; 99283

== ENCOUNTER 2023-01-21 18:13 | Emergency (ER) | payer MEDICAID ==
[2023-01-21 18:56] VITALS: BP 132/79; PULSE 80
== END 2023-01-21 18:55 | disposition home or self-care (01) ==
LOC: MW.ED 18:13
DX: K04.7 Periapical abscess without sinus (principal); F17.210 Nicotine dependence, cigarettes, uncomplicated; E66.9 Obesity, unspecified; Z68.42 Body mass index [BMI] 45.0-49.9, adult
CPT/HCPCS: 99282; 99283

== ENCOUNTER 2023-01-28 12:57 | Emergency (ER) | payer MEDICAID ==
[2023-01-28] MEDS ORDERED: Benzocaine 20% Topical Spray UD MUCMEM STA (13:27)
[2023-01-28] MEDS ORDERED: Lidocaine 2% Viscous Solution 15 ML UD PO STA (13:27)
[2023-01-28 14:07] VITALS: BP 130/96; PULSE 79
== END 2023-01-28 14:06 | disposition home or self-care (01) ==
LOC: MW.ED 12:57
DX: K04.7 Periapical abscess without sinus (principal); E66.9 Obesity, unspecified; Z68.42 Body mass index [BMI] 45.0-49.9, adult
CPT/HCPCS: 99282; A9270; 99283

== ENCOUNTER 2023-11-23 17:08 | Emergency (ER) | payer BC ==
[2023-11-23 18:08] VITALS: PULSE 84
[2023-11-23 19:40] VITALS: BP 137/95
== END 2023-11-23 19:40 | disposition home or self-care (01) ==
LOC: MW.ED 17:08
DX: K02.9 Dental caries, unspecified (principal); F17.210 Nicotine dependence, cigarettes, uncomplicated; E66.9 Obesity, unspecified; Z68.43 Body mass index [BMI] 50.0-59.9, adult
CPT/HCPCS: 99282

== ENCOUNTER 2024-06-26 18:58 | Emergency (ER) | payer BC ==
[2024-06-26] MEDS: Penicillin V Potassium 500 MG Tab PO STA (19:25)
[2024-06-26 19:57] VITALS: BP 132/72; PULSE 82
== END 2024-06-26 19:57 | disposition home or self-care (01) ==
LOC: MW.ED 18:58
DX: K04.7 Periapical abscess without sinus (principal); Z79.899 Other long term (current) drug therapy; Z88.0 Allergy status to penicillin
CPT/HCPCS: 99283; A9270